=== PATIENT | male | born 1945 | race Caucasian/White ===

== ENCOUNTER 2020-05-05 15:55 | Inpatient (IN) | payer OTHER, MEDICARE ==
[~2020-05-05] VITALS: Ht 170.2 cm; Wt 60.8 kg
[2020-05-05 16:53] LABS: BASOPHILS ABSOLUTE AUTO 0.09 K/mm3 (0.00-0.23); BASOPHILS PERCENT AUTO 1 % (0-2); EOSINOPHILS ABSOLUTE AUTO 0.11 K/mm3 (0.00-0.68); EOSINOPHILS PERCENT AUTO 1 % (0-6); Hematocrit 29.3 % (37.0-53.0); Hemoglobin 9.4 g/dL (13.5-17.5); IMMATURE GRAN PERCENT AUTO 1 % (0-1); LYMPHOCYTES ABSOLUTE AUTO 1.03 K/mm3 (0.84-5.20); LYMPHOCYTES PERCENT AUTO 7 % (21-46); MONOCYTES ABSOLUTE AUTO 1.36 K/mm3 (0.16-1.47); MONOCYTES PERCENT AUTO 9 % (4-13); Mean Corpuscular HGB 26.9 pg (26.0-34.0); Mean Corpuscular HGB Conc 32.1 g/dL (31.5-36.5); Mean Corpuscular Volume 84 fL (80-100); Mean Platelet Volume 9.4 fL (9.1-12.4); NEUTROPHILS ABSOLUTE AUTO 13.01 K/mm3 (1.96-9.15); NEUTROPHILS PERCENT AUTO 83 % (41-73); Platelet Count 438 K/mm3 (150-400); RDW Coefficient Variation 12.7 % (11.7-14.2); RDW Standard Deviation 38.3 fL (35.1-46.3)
[2020-05-05 17:12] LABS: Albumin, Blood 2.7 g/dL (3.4-5.0); Albumin/Globulin Ratio 0.7 (0.8-1.8); Bilirubin, Total 0.6 mg/dL (0.1-1.0); Calcium, Blood 8.8 mg/dL (8.5-10.1); Creatinine, Blood 2.75 mg/dL (0.60-1.20); Globulin, Blood 3.7 g/dL (2.2-4.0); Potassium, Blood 5.6 mmol/L (3.5-5.5); Total Protein, Blood 6.4 g/dL (6.4-8.2); Troponin I 0.033 ng/mL (0.000-0.040)
[2020-05-05] MEDS ORDERED: CLON.3 PO (18:58)
[2020-05-05] MEDS ORDERED: AMLO10 PO (18:58)
[2020-05-05] MEDS ORDERED: HYDRA50 PO (18:59)
[2020-05-05] MEDS ORDERED: JARDIANCE25 MG PO (18:59)
[2020-05-05] MEDS ORDERED: INSULANPEN SC (18:59)
[2020-05-05] MEDS ORDERED: ASPI325EC PO (19:00)
[2020-05-05] MEDS ORDERED: ZESTRIL40 M1 PO (19:00)
[2020-05-05] MEDS ORDERED: LATA.005SO BOTHEYES (19:00)
[2020-05-05 20:28] LABS: Adenovirus Not Detected (NOT DETECT); Bordetella pertussis Not Detected (NOT DETECT); Chlamydophila pneumoniae Not Detected (NOT DETECT); Coronavirus 229E Not Detected (NOT DETECT); Coronavirus HKU1 Not Detected (NOT DETECT); Coronavirus NL63 Not Detected (NOT DETECT); Coronavirus OC43 Not Detected (NOT DETECT); Human Metapneumovirus Not Detected (NOT DETECT); Human Rhinovirus/Enterovirus Not Detected (NOT DETECT); Influenza A/2009-H1 Not Detected (NOT DETECT); Influenza A/H1 Not Detected (NOT DETECT); Influenza A/H3 Not Detected (NOT DETECT); Influenza B Not Detected (NOT DETECT); Mycoplasma pneumoniae Not Detected (NOT DETECT); Parainfluenza Virus 1 Not Detected (NOT DETECT); Parainfluenza Virus 2 Not Detected (NOT DETECT); Parainfluenza Virus 3 Not Detected (NOT DETECT); Parainfluenza Virus 4 Not Detected (NOT DETECT); Respiratory Syncytial Virus Not Detected (NOT DETECT); SARS-Cov-2 (COVID-19), BioFire Not Detected (NOT DETECT)
[2020-05-05 23:23] LABS: PCO2 Arterial 30.9 mmHg (35-45); PO2 Arterial 107 mmHg (80-100); pH Blood Arterial 7.37 (7.35-7.45)
--- NOTE | 2020-05-05 23:59 | NUR ---
ASSUMED CARE OF PATIENT AT APPROXIMATELY 2225 FROM ED FRANCOIS JOSEPH; REPORT FROM ED RN CATERINA Carl PATIENT ARRIVED TO UNIT VIA STRETCHER; TRANSFER VIA MAX ASSIST SLID FROM ED TO PCU STRETCHER. PATIENT ALERT AND ORIENTED X4; HARD OF HEARING AND SOFT SPOKEN; DIFFICULT TO UNDERSTAND DUE TO BIPAP MASK AT TIMES. ADMISSION COMPLETE. PATIENT HAD WASHCLOTH IN UNDERWEAR SATURATED IN URINE. PATIENT DENIES PAIN, DIZZINESS OR NAUSEA. NSR ON TELE; OXYGEN SATURATION ABOVE 90% ON BIPAP 40% FIO2. PIVX2 S/L. 2310; CHAY POTTER CALLED TO REPORT D-DIMER OF 8.51 AND TROPONIN TRENDING UP LASIX ORDERED AND FLUIDS HELD FOR NOW 2345; CHAY POTTER CALLED TO REPORT BLADDER SCAN OVER 900; ORDERS FOR URINARY CATHETER PATIENT CURRENTLY RESTING IN BED; CALL LIGHT IN REACH; BED IN LOWEST POSISTION; BED ALARM ON; WILL CONTINUE TO MONITOR AND ASSESS UNTIL END OF SHIFT.
[2020-05-06 03:44] LABS: BASOPHILS ABSOLUTE AUTO 0.07 K/mm3 (0.00-0.23); BASOPHILS PERCENT AUTO 1 % (0-2); EOSINOPHILS ABSOLUTE AUTO 0.06 K/mm3 (0.00-0.68); EOSINOPHILS PERCENT AUTO 0 % (0-6); Hematocrit 25.7 % (37.0-53.0); Hemoglobin 8.3 g/dL (13.5-17.5); IMMATURE GRAN PERCENT AUTO 1 % (0-1); LYMPHOCYTES ABSOLUTE AUTO 1.19 K/mm3 (0.84-5.20); LYMPHOCYTES PERCENT AUTO 8 % (21-46); MONOCYTES ABSOLUTE AUTO 1.18 K/mm3 (0.16-1.47); MONOCYTES PERCENT AUTO 8 % (4-13); Mean Corpuscular HGB Conc 32.3 g/dL (31.5-36.5); Mean Corpuscular Volume 84 fL (80-100); Mean Platelet Volume 9.3 fL (9.1-12.4); NEUTROPHILS ABSOLUTE AUTO 11.68 K/mm3 (1.96-9.15); NEUTROPHILS PERCENT AUTO 82 % (41-73); Platelet Count 371 K/mm3 (150-400); RDW Standard Deviation 39.5 fL (35.1-46.3); Red Blood Cell Count 3.07 M/mm3 (4.30-5.90); White Blood Cell Count 14.28 K/mm3 (4.00-11.30)
[2020-05-06 04:07] LABS: Bun/Creatinine Ratio 37.5 (12.0-20.0); Calcium, Blood 8.6 mg/dL (8.5-10.1); Creatinine, Blood 2.72 mg/dL (0.60-1.20); Potassium, Blood 5.5 mmol/L (3.5-5.5); Troponin I 0.038 ng/mL (0.000-0.040)
[2020-05-06 04:29] LABS: Source, Urine Catheter
[2020-05-06 04:44] LABS: Bilirubin, Urine Neg (Neg); Blood, Urine 5+ (Neg); Glucose Qualitative, Urine 3+ (Neg); Ketones, Urine 1+ (Neg); Leukocyte Esterase, Urine 2+ (Neg); Nitrite, Urine Neg (Neg); Protein, Urine 4+ (Neg); Specific Gravity, Urine 1.015 (1.003-1.022); Urobilinogen, Urine NORM (Normal)
[2020-05-06 04:46] LABS: Appearance, Urine Cloudy (Clear); Color, Urine Red (P-Yellow)
[2020-05-06 05:18] LABS: Red Blood Cells, Urine TNTC /hpf (0-2)
[2020-05-06 05:19] LABS: Squamous Epithelial Cells Rare /hpf (Few)
[2020-05-06 05:20] LABS: Bacteria Mod /hpf
--- NOTE | 2020-05-06 06:27 | NUR ---
PATIENT SLEPT ABOUT SIX HOURS LAST NIGHT. ATIVAN WORE OFF PATIENT BECAME MORE IRRITABLE WITH STAFF. PATIENT WOULDN'T STAY STILL FOR BLOOD PRESSURE; ELEVATED BP READINGS. PATIENT HAD OVER 1L OF URINE THAT HAS BLOOD NOTED IN IT NOW. ON AND OFF CPAP ALL SHIFT. WILL CONTINUE TO MONITOR AND ASSESS UNTIL END OF SHIFT.
--- NOTE | 2020-05-06 11:22 | NUR ---
ASSUMED CARE OF PT. PT ARRIVED BACK TO ROOM FROM VQ SCAN. NC FOUND IN PT'S MOUTH, PER HIS REQUEST, WITH 3.5L OF O2. PT C/O DYSPNEA, SPO2 IS >92% ON O2. PT APPEARS ANXIOUS AND WAS COMPLAINING ABOUT THE BP CUFF BEING TO TIGHT. INFORMED PT THAT HIS BP IS ELEVEATED, ADDING TO THE TIGHT BP. POLANCO DRAINING TO GRAVITY WITH DARK REDDISH URINE. WOUND VAC AND DRESSING IN PLACE TO RLE IS C/D/I. PROVIDED CARE UPDATE WITH PT, CALL LIGHT WITHIN REACH.
--- NOTE | 2020-05-06 18:15 | NUR ---
SHIFT SUMMARY PT IS ALERT AND ORIENTED, FORGETFUL AND ANXIOUS AT TIMES. WAS ABLE TO TITRATE O2 DOWN TO 2L OR 2L BLEED IN TO CPAP. PT SWITCHED BACK AND FORTH BETWEEN NC AND CPAP TODAY, BASED ON HIS COMFORT OF BREATHING. POLANCO REMAINS IN PLACE DRAINING TO GRAVITY, WITH DARK RED URINE, NO CLOTS. OUTPT WOUND VAC AND DRESSING REMAINS IN PLACE AND IS C/D/I. PT HAS BEEN HYPERTENSIVE TODAY AND IS IMPROVING THIS EVENING. TEMP MAX TODAY WAS 100.0. TELEMETERY HAS SHOWN PT TO BE SINUS RHYTHM/TACH WITH RATES 90'S-110'S.
--- NOTE | 2020-05-06 21:01 | NUR ---
ASSUMED CARE OF PATIENT AT APPROXIMATELY 1910 FROM KAIA David RN. PATIENT ALERT AND ORIENTED X4; HARD OF HEARING AND SOFT SPOKEN. PATIENT CALLS OUT INTO HALLWAY, IRRITABLE WITH CARE AT TIMES, FRANCHISE FIELD CONSULTANT LIGHT FREQUENTLY. ADMISSION COMPLETE. PATIENT DENIES PAIN, DIZZINESS OR NAUSEA. NSR ON TELE; OXYGEN SATURATION ABOVE 90% ON BIPAP OR 2-3.5LPM VIA NC. PIVX2 S/L. URINARY CATHETER PATENT AND DRAINING. PATIENT CURRENTLY RESTING IN BED; CALL LIGHT IN REACH; BED IN LOWEST POSISTION; BED ALARM ON; WILL CONTINUE TO MONITOR AND ASSESS UNTIL END OF SHIFT.
[2020-05-07 03:34] LABS: BASOPHILS ABSOLUTE AUTO 0.07 K/mm3 (0.00-0.23); BASOPHILS PERCENT AUTO 0 % (0-2); EOSINOPHILS ABSOLUTE AUTO 0.18 K/mm3 (0.00-0.68); EOSINOPHILS PERCENT AUTO 1 % (0-6); Hematocrit 25.6 % (37.0-53.0); Hemoglobin 8.3 g/dL (13.5-17.5); IMMATURE GRAN PERCENT AUTO 1 % (0-1); LYMPHOCYTES ABSOLUTE AUTO 1.24 K/mm3 (0.84-5.20); LYMPHOCYTES PERCENT AUTO 7 % (21-46); MONOCYTES ABSOLUTE AUTO 1.86 K/mm3 (0.16-1.47); MONOCYTES PERCENT AUTO 10 % (4-13); Mean Corpuscular HGB Conc 32.4 g/dL (31.5-36.5); Mean Corpuscular Volume 83 fL (80-100); Mean Platelet Volume 9.3 fL (9.1-12.4); NEUTROPHILS ABSOLUTE AUTO 14.78 K/mm3 (1.96-9.15); NEUTROPHILS PERCENT AUTO 81 % (41-73); Platelet Count 357 K/mm3 (150-400); RDW Standard Deviation 39.2 fL (35.1-46.3); Red Blood Cell Count 3.07 M/mm3 (4.30-5.90); White Blood Cell Count 18.23 K/mm3 (4.00-11.30)
[2020-05-07 03:57] LABS: Albumin, Blood 2.3 g/dL (3.4-5.0); Albumin/Globulin Ratio 0.6 (0.8-1.8); Bilirubin, Total 0.5 mg/dL (0.1-1.0); Bun/Creatinine Ratio 36.2 (12.0-20.0); Calcium, Blood 8.6 mg/dL (8.5-10.1); Creatinine, Blood 3.2 mg/dL (0.60-1.20); Globulin, Blood 3.6 g/dL (2.2-4.0); Potassium, Blood 5.6 mmol/L (3.5-5.5); Total Protein, Blood 5.9 g/dL (6.4-8.2)
--- NOTE | 2020-05-07 06:29 | NUR ---
PATIENT SLEPT ABOUT FIVE HOURS LAST NIGHT. URINE DARK RED/BROWN; SEDIMENT NOTED. PATIENT IRRITABLE WITH CARE. CALLS FREQUENTLY.
--- NOTE | 2020-05-07 18:30 | NUR ---
SHIFT SUMMARY PT IS ALERT AND ORIENTEDx4, LESS IRRITABLE TODAY. PT REPORTED THAT CHEWING FOOD TIRES HIM, MAKES HIM ANXIOUS AND INCREASES HIS WORK OF BREATHING. DISCUSSED DIETARY OPTIONS WITH PT AND ENCOURAGED PT TO EAT SMALL AMOUNTS OVER LONGER PERIODS OF TIME AND ADJUSTED PT'S DIET TO MECH SOFT. PT'S HYPERTENSION WAS IMPROVING TODAY AFTER MEDICATION ADJUSTMENTS. DR FISCHER WAS CONSULTED AND IS CURRENTLY NOT GOING TO DO SHAKILA. DR ALVARENGA ALSO CONSULTED AND ORDERS RECEIVED AND IMPLEMENTED. POLANCO IN PLACE DRAINING JENNY URINE AND OUTPUT WAS SMALL. TELEMETERY HAS SHOWN PT TO BE IN SINUS RHYTHM/TACH WITH RATES 90'S-100'S. PT HAS BEEN ON 2-3.5L OF O2 VIA NC TODAY AND REQUESTED LESS USE OF CPAP TODAY. OTHER VITALS HAVE BEEN STABLE.
[2020-05-08 03:48] LABS: BASOPHILS ABSOLUTE AUTO 0.05 K/mm3 (0.00-0.23); BASOPHILS PERCENT AUTO 0 % (0-2); EOSINOPHILS ABSOLUTE AUTO 0.38 K/mm3 (0.00-0.68); EOSINOPHILS PERCENT AUTO 2 % (0-6); Hematocrit 25.5 % (37.0-53.0); Hemoglobin 8.2 g/dL (13.5-17.5); IMMATURE GRAN ABSOLUTE AUTO 0.09 K/mm3 (0.00-0.10); IMMATURE GRAN PERCENT AUTO 1 % (0-1); LYMPHOCYTES ABSOLUTE AUTO 1.12 K/mm3 (0.84-5.20); LYMPHOCYTES PERCENT AUTO 7 % (21-46); MONOCYTES ABSOLUTE AUTO 1.56 K/mm3 (0.16-1.47); MONOCYTES PERCENT AUTO 9 % (4-13); Mean Corpuscular HGB 26.8 pg (26.0-34.0); Mean Corpuscular HGB Conc 32.2 g/dL (31.5-36.5); Mean Corpuscular Volume 83 fL (80-100); Mean Platelet Volume 9.2 fL (9.1-12.4); NEUTROPHILS ABSOLUTE AUTO 14.01 K/mm3 (1.96-9.15); NEUTROPHILS PERCENT AUTO 81 % (41-73); Platelet Count 363 K/mm3 (150-400); RDW Coefficient Variation 12.8 % (11.7-14.2); RDW Standard Deviation 38.9 fL (35.1-46.3); Red Blood Cell Count 3.06 M/mm3 (4.30-5.90); White Blood Cell Count 17.21 K/mm3 (4.00-11.30)
[2020-05-08 04:12] LABS: Alanine Aminotransfer (ALT/SGP 7 U/L (12-78); Albumin, Blood 2.1 g/dL (3.4-5.0); Albumin/Globulin Ratio 0.7 (0.8-1.8); Alk Phos 63 U/L (50-136); Anion Gap 9 mmol/L (6-16); Aspartate Aminotrans (AST/SGOT 17 U/L (12-37); Bilirubin, Total 0.3 mg/dL (0.1-1.0); Blood Urea Nitrogen 127 mg/dL (8-24); Bun/Creatinine Ratio 39.7 (12.0-20.0); CO2, Blood 21 mmol/L (21-32); Calcium, Blood 8.4 mg/dL (8.5-10.1); Chloride, Blood 108 mmol/L (98-108); Globulin, Blood 3.2 g/dL (2.2-4.0); Glomerular Filtration Rate 20 (60-); Glucose, Blood 151 mg/dL (70-99); Magnesium, Blood 2.9 mg/dL (1.6-2.4); Phosphorus, Blood 6.4 mg/dL (2.5-4.9); Potassium, Blood 5.3 mmol/L (3.5-5.5); Sodium, Blood 138 mmol/L (136-145); Total Protein, Blood 5.3 g/dL (6.4-8.2); Vancomycin, Random 17.6 ug/mL
--- NOTE | 2020-05-08 06:44 | NUR ---
SHIFT SUMMARY NO ACUTE CHANGE THIS SHIFT. PT A&OX4. COOPERATIVE. IRRITABLE BUT REDIRECTABLE. SP02>90% ON 3L NC. TELEMETRY READS SR, HR 50'S. BP HAS BEEN ELEVATED THIS SHIFT, BP MEDICATIONS GIVEN PER EMAR. MIDNIGHT BP TAKEN AND DID NOT GET A READING. PT REFUSED TO RETAKE BUT ALLOWED AT 0400 AM VITALS. OFFERED TO REPOSITION PT MULTIPLE TIMES, PT REFUSED. DR ALVARENGA IN TO SEE PT AT BEGINNING OF SHIFT. BICARB INFUSING PER EMAR. POLANCO DRAINING TO GRAVITY. WILL CONTINUE TO MONITOR.
--- NOTE | 2020-05-08 11:02 | NUR ---
said pt stated that wound care changed his wv but she was willing for staff to care for it if within training and experience, will assess and treat
--- NOTE | 2020-05-08 12:49 | NUR ---
emisis, pt had stated he did not want lunch, staff wrote it on menu but one was delivered, when staff brought it in pt became agitated, would not allow staff to clean him up, declined drew, took prescribed medication with minimal compaint, currently resting no emisis, will continue to monitor and treat
--- NOTE | 2020-05-08 19:21 | NUR ---
a+o, wants wound vac to stay, discussed with noc nurse who will pass on to day shift, if [facility] not available from [facility] then he has agreed to go with our model, call light in reach, iv infusing with no s/sx of infection or infiltration, bed in low position, no signs of acute changes noted, bsr shared with pt and staff
[2020-05-09 04:13] LABS: BASOPHILS ABSOLUTE AUTO 0.07 K/mm3 (0.00-0.23); BASOPHILS PERCENT AUTO 1 % (0-2); EOSINOPHILS ABSOLUTE AUTO 0.31 K/mm3 (0.00-0.68); EOSINOPHILS PERCENT AUTO 2 % (0-6); Hematocrit 22.7 % (37.0-53.0); Hemoglobin 7.5 g/dL (13.5-17.5); IMMATURE GRAN ABSOLUTE AUTO 0.08 K/mm3 (0.00-0.10); IMMATURE GRAN PERCENT AUTO 1 % (0-1); LYMPHOCYTES ABSOLUTE AUTO 1.49 K/mm3 (0.84-5.20); LYMPHOCYTES PERCENT AUTO 11 % (21-46); MONOCYTES ABSOLUTE AUTO 1.38 K/mm3 (0.16-1.47); MONOCYTES PERCENT AUTO 10 % (4-13); Mean Corpuscular HGB 27.4 pg (26.0-34.0); Mean Corpuscular Volume 83 fL (80-100); Mean Platelet Volume 9.4 fL (9.1-12.4); NEUTROPHILS PERCENT AUTO 77 % (41-73); Platelet Count 319 K/mm3 (150-400); RDW Coefficient Variation 12.7 % (11.7-14.2); RDW Standard Deviation 38.5 fL (35.1-46.3); Red Blood Cell Count 2.74 M/mm3 (4.30-5.90); White Blood Cell Count 14.23 K/mm3 (4.00-11.30)
[2020-05-09 04:37] LABS: Albumin, Blood 1.7 g/dL (3.4-5.0); Anion Gap 9 mmol/L (6-16); Blood Urea Nitrogen 139 mg/dL (8-24); Bun/Creatinine Ratio 39.4 (12.0-20.0); CO2, Blood 22 mmol/L (21-32); Chloride, Blood 106 mmol/L (98-108); Creatinine, Blood 3.53 mg/dL (0.60-1.20); Glomerular Filtration Rate 18 (60-); Glucose, Blood 159 mg/dL (70-99); Magnesium, Blood 2.7 mg/dL (1.6-2.4); Phosphorus, Blood 7.9 mg/dL (2.5-4.9); Potassium, Blood 5.6 mmol/L (3.5-5.5); Sodium, Blood 137 mmol/L (136-145); Vancomycin, Random 22.3 ug/mL
--- NOTE | 2020-05-09 06:27 | NUR ---
SHIFT SUMMARY PT SLEPT T/O SHIFT. PT ALERT AND ORIENTED X 4. AGITATED AT TIMES. REFUSED CPAP T/O SHIFT. OXYGEN SATURATION MAINTAINED ABOVE 92% ON 2-3 L OF OXYGEN VIA NC. REFUSED WOUND VAC CHANGE. CHAMFERING MACHINE OPERATOR NOTIFIED. REFUSED Q 2 TURNS, ABLE TO SHIFT SELF IN BED NEEDED. HR STABLE, BRADYCARDIC AT TIMES. BETA BLOCKERS HELD. BP STABLE. REPORTS NO CP OR PRESSURE. PHYSICIAN NOTIFIED OF LOW URINE OUTPUT AND AM LABS. ORDERS PROVIDED AND GIVEN PER EMAR. BUE SWOLLEN T/O SHIFT, CURRENLTY ELEVATED ON PILLOWS. WILL CONTINUE TO MONITOR UNTIL REPORT GIVEN TO DAYSHIFT RN.
--- NOTE | 2020-05-09 10:37 | NUR ---
ASSUMED CARE FROM NOC RN. PT WAS SLEEPING AT SHIFT CHANGE. PT IS ALERT AND ORIENTED BUT TENDS TO CHANGE TOPIC OF CONVERSATION FREQUENTLY. PT IS REFUSING TO HAVE THE WOUND VAC AND DRESSING CHANGED ON THE RIGHT FOOT; DRESSING IS CURRENTLY C/D/I BUT WAS DUE FOR A CHANGE YESTERDAY 05/08/20. PT STATES "I DON'T LIKE OUR WOUND CARE SUPPLIES AND WANTS US TO USE WHAT THE [facility]" I'VE EXPLAINED THAT WE HAVE OUR SUPPLIES HERE AND ARE NOT ABLE TO GET THE SUPPLIES FROM THE [facility] BUT I AM HAPPY TO DO THE DRESSING WITH OUR EQUIPMENT; PT CONTINUES TO REFUSE. PT HAS BICARB AND ANITBIOTICS RUNNING THROUGH THE IV. PT DENIES CHEST PAIN OR PRESSURE, AND DENIES PAIN ELSEWHERE THROUGHOUT THE BODY. PT CAN BE IRRITABLE AT TIMES WHEN HE FEELS WE ARE NOT LISTENING AND NEEDS REASSURANCE THAT STAFF IS HERE TO HELP. VS STABLE, BG STABLE, PT RESTING AT THIS TIME AND AWAITING A ROOM ON MEDICAL UNIT WITH TELE HIS STATUS HAS CHANGED.
--- NOTE | 2020-05-09 13:11 | NUR ---
ATTEMPTED TO PULL URINE FOR THE UA FROM THE POLANCO CATHETER. THE CATH WAS CLAMPED AND ONLY 6ML WAS PULLED OUT VIA SYRINGE. WILL ATTEMPT AGAIN LATER
--- NOTE | 2020-05-09 18:31 | NUR ---
TRANSFER TO MEDICAL UNIT GAVE REPORT TO RNLINH. PT WAS AGREEABLE TO TRANSFER. PT LEFT THE UNIT WITH VS STABLE, NSR HR IN 60S. PT WAS ON 1L O2, WOUND VAC AND WOUND ON THE RIGHT FOOT HAD BEEN REDRESSED PRIOR TO TRANSFER. PT LEFT THE UNIT WITH HIS PERSONAL BELONGINGS, HIS CANE, TWO PHONES, AND INSULIN PENS. PT WAS ON BICARB DRIP DURING TRANSFER AND LEFT THE FLOOR BY CART WITH TWO ROCK CRUSHER OPERATOR'S.
[2020-05-10 05:46] LABS: Hematocrit 23.8 % (37.0-53.0)
--- NOTE | 2020-05-10 05:49 | NUR ---
SHIFT SUMMARY ADMITTED FOR SEPSIS DUE TO PNEUMONIA. FULL CODE. 24 URINE COLLECTION IN PROGRESS. POLANCO CATHETER IN PLACE. TELEMETRY: ONELIA @ 47-60 BPM. REFUSED CPAP LAST NIGHT, DID NOT SLEEP THIS SHIFT. CALLS FREQUENTLY FOR SMALL NEEDS. WOUND VAC IN PLACE ON RT TOES. NS W/SODIUM BICARB INFUSING @ 50 ML/HR. PT DID SIT UP IN CHAIR THIS SHIFT. EAMON ALVARENGA AND ALTON ARE CONSULTS. VERY LITTLE UO THIS SHIFT. FREQUENTLY REQUESTS OXYGEN TO BE INCREASED ALTHOUGH 02 SAT IS > 97%
[2020-05-10 06:01] LABS: Albumin, Blood 2.1 g/dL (3.4-5.0); Anion Gap 9 mmol/L (6-16); Blood Urea Nitrogen 146 mg/dL (8-24); Bun/Creatinine Ratio 37.3 (12.0-20.0); CO2, Blood 21 mmol/L (21-32); Chloride, Blood 104 mmol/L (98-108); Creatinine, Blood 3.91 mg/dL (0.60-1.20); Glomerular Filtration Rate 16 (60-); Glucose, Blood 113 mg/dL (70-99); Magnesium, Blood 2.8 mg/dL (1.6-2.4); Phosphorus, Blood 7.5 mg/dL (2.5-4.9); Potassium, Blood 5.4 mmol/L (3.5-5.5); Sodium, Blood 134 mmol/L (136-145)
--- NOTE | 2020-05-10 14:11 | NUR ---
D/C INSTRUCT REVIEWED w PT'S. NEW [place] TO [place]/REQUEST. ARRIVED. BOOK AGENT PROVIDE W/C ESCORT FROM HOSP. PT IS PLEASANT/APPRECIATIVE. STATE SATISFACTION.
--- NOTE | 2020-05-10 18:24 | NUR ---
SUMMARY PT IS A/O X4, PLEASANT AFFECT. STATE HE IS ABLE TO GET UP w ASSIST TO CHAIR HOWEVER HAS DECLINED OOB T/O DAY UNLESS WE HAVE A W/C THAT HE CAN WHEEL IND. ANABEL SAW HIM THIS AFTERNOON, DID EXERCISES IN BED. DX PNEUM, LS DIMINISHED w CRACKLES, BIOX 95% 2L, HE HAS BEEN AFEBRILE, IV ANTIBX CONTINUE. WOUND VAC TO R FOOT TOE AMPUTATION SITE PATENT, DRSG INTACT. ARF, GFR 16, DR ALVARENGA CONSULTED, ORDER 4MG IV BUMEX THIS AM. PT HAS HAD 500ML OUTPUT SO FAR VIA POLANCO CATH, URINE ON ICE FOR 24HR COLLECTION. BUE, TORSO, GENITALS SWOLLEN, EDEMATOUS. TELE NSR/MX.
[2020-05-10 23:10] LABS: Protein, Urine Quantitative 164.7 mg/dL (0.0-11.9)
[2020-05-11 04:43] LABS: Hematocrit 24.8 % (37.0-53.0); Hemoglobin 8.1 g/dL (13.5-17.5)
--- NOTE | 2020-05-11 05:11 | NUR ---
SHIFT SUMMARY ADMITTED FOR PNEUMONIA/SEPSIS. FULL CODE. BUE AND TORSO, GENITAL REGION ARE MORE EDEMATOUS THAN ON PREVIOUS SHIFTS. PT BECAME NAUSEOUS X1 THIS SHIFT, MEDICATED PER EMAR. 24 HR URINE PROTEIN IS COLLECTED AND SUBMITTED FOR ANALYSIS. TELEMETRY: NSR @ [address] ON RT TOES FOLLOWING AMPUTATION AT [employer]. POLANCO IN PLACE IS PATENT.
[2020-05-11 05:36] LABS: Albumin, Blood 2.1 g/dL (3.4-5.0); Anion Gap 10 mmol/L (6-16); Blood Urea Nitrogen 153 mg/dL (8-24); Bun/Creatinine Ratio 38.2 (12.0-20.0); CO2, Blood 22 mmol/L (21-32); Calcium, Blood 8.1 mg/dL (8.5-10.1); Chloride, Blood 102 mmol/L (98-108); Glomerular Filtration Rate 16 (60-); Glucose, Blood 135 mg/dL (70-99); Phosphorus, Blood 8.2 mg/dL (2.5-4.9); Potassium, Blood 5.5 mmol/L (3.5-5.5); Sodium, Blood 134 mmol/L (136-145)
--- NOTE | 2020-05-11 08:42 | NUR ---
DR ALVARENGA IN TO SEE PT, REVIEW LABS & NEED FOR DIALYSIS, EXPLAIN PROCESS & NEED FOR PERMA CATH PLACEMENT. PT AGREES TO PROCEDURES. DR ALVARENGA CONTACT DR NEVAREZ VIA PHONE FOR DIALYSIS CATH PLACEMENT.
[2020-05-11 10:09] LABS: B. HENSELAE IGG Negative titer (Neg:<1:320); B. HENSELAE IGM Negative titer (Neg:<1:100); B. QUINTANA IGG Negative titer (Neg:<1:320); B. QUINTANA IGM Negative titer (Neg:<1:100)
[2020-05-11 12:09] LABS: Q FEVER PHASE I Negative (Neg:<1:16); Q FEVER PHASE II Negative (Neg:<1:16)
--- NOTE | 2020-05-11 14:10 | NUR ---
PT REFUSING WOUND VAC CHANGE TODAY "IT WAS JUST CAHNGED ON FRIDAY. AND IF WE WAIT UNTIL TOMORROW IT WILL BE BACK ON THE RIGHT SCHEDULE"
--- NOTE | 2020-05-11 19:49 | NUR ---
SUMMARY PT IS A/O X4 HOWEVER CONTINUES WEAK/FATIGUED, T/O DAY. CONTINUING RENAL FAILURE, ANASARCA. HE AGREED TO DIALYSIS THIS w DR ALVARENGA. DR NEVAREZ PLACE PERMA CATH PORT RCW THIS AFTERNOON. PT HAS BEEN NAUSEOUS, IV ZOFRAN GIVEN, INEFFECTIVE, DR KOBY WHALEN ORDER REPEAT. HIS BP HAS BEEN ELEVATED, D/T NAUSEA UNABLE TO TOLERATE SCHEDULED ORAL BP MEDS, DR WHALEN ORDER IV HYDRALAZINE. DR ALVARENGA HAD NURS SUPVR NOTIFY FLAME ANNEALING MACHINE SETTER PERMACATH IN PLACE, PT WILL HAVE HD IN AM. DR ALVARENGA NOTIFIED URINE OUTPUT MINIMAL, ONLY 300ML THIS SHIFT, ORDER IV BUMEX 4MG. REPORT TO NOC RN.
--- NOTE | 2020-05-12 04:16 | NUR ---
LABS RN NOTIFIED THAT FILLING HAULER WAS UNABLE TO DRAW AM LABS AND PT REFUSING FURTHER ATTEMPTS AT THIS TIME. LAB DRAW WILL BE ATTEMPTED AGAIN AT A LATER TIME.
--- NOTE | 2020-05-12 04:59 | NUR ---
SHIFT SUMMARY PT HAS BEEN A/O OVERNIGHT. USING CALL LIGHT AND MAKING NEEDS KNOWN. NEW PERMACATH TO R UPPER CHEST IN PLACE. NO NEW DRAINAGE ON DRESSING OVERNIGHT. PT REFUSED ASSESSMENT OF WOUND VAC DRESSING THIS SHIFT. HE HAS ALSO REFUSED MEDICATIONS AT TIMES T/O THE SHIFT. EDUCATION PROVIDED, HOWEVER PT CONTINUES TO REFUSE MEDICATIONS. LAB DRAW ATTEMPTED THIS AM; FIRST ATTEMPT UNSUCCESSFUL, PT REFUSING FURTHER ATTEMPTS. CATHETER IN PLACE OVERNIGHT WITH LOW URINE OUTPUT. SUCTION AT BEDSIDE; PT USING PRN. HOB ELEVATED OVERNIGHT. USING 2L O2 NC WITH O2 SAT 97%. PLAN IS TO HAVE DIALYSIS TODAY. PT RESTING AT THIS TIME, CALL LIGHT IN REACH.
[2020-05-12 09:45] LABS: BASOPHILS ABSOLUTE AUTO 0.04 K/mm3 (0.00-0.23); BASOPHILS PERCENT AUTO 0 % (0-2); EOSINOPHILS ABSOLUTE AUTO 0.11 K/mm3 (0.00-0.68); EOSINOPHILS PERCENT AUTO 1 % (0-6); Hematocrit 25.1 % (37.0-53.0); Hemoglobin 8.2 g/dL (13.5-17.5); IMMATURE GRAN ABSOLUTE AUTO 0.14 K/mm3 (0.00-0.10); IMMATURE GRAN PERCENT AUTO 1 % (0-1); LYMPHOCYTES ABSOLUTE AUTO 1.13 K/mm3 (0.84-5.20); LYMPHOCYTES PERCENT AUTO 5 % (21-46); MONOCYTES ABSOLUTE AUTO 2.06 K/mm3 (0.16-1.47); MONOCYTES PERCENT AUTO 10 % (4-13); Mean Corpuscular HGB 26.9 pg (26.0-34.0); Mean Corpuscular HGB Conc 32.7 g/dL (31.5-36.5); Mean Corpuscular Volume 82 fL (80-100); Mean Platelet Volume 9.3 fL (9.1-12.4); NEUTROPHILS ABSOLUTE AUTO 17.35 K/mm3 (1.96-9.15); NEUTROPHILS PERCENT AUTO 83 % (41-73); Platelet Count 406 K/mm3 (150-400); RDW Coefficient Variation 13.2 % (11.7-14.2); RDW Standard Deviation 39.3 fL (35.1-46.3); Red Blood Cell Count 3.05 M/mm3 (4.30-5.90); White Blood Cell Count 20.83 K/mm3 (4.00-11.30)
[2020-05-12 10:26] LABS: Albumin, Blood 2.2 g/dL (3.4-5.0); Anion Gap 12 mmol/L (6-16); Blood Urea Nitrogen 174 mg/dL (8-24); Bun/Creatinine Ratio 37.3 (12.0-20.0); CO2, Blood 22 mmol/L (21-32); Calcium, Blood 8.5 mg/dL (8.5-10.1); Chloride, Blood 101 mmol/L (98-108); Creatinine, Blood 4.67 mg/dL (0.60-1.20); Glomerular Filtration Rate 13 (60-); Glucose, Blood 164 mg/dL (70-99); Phosphorus, Blood 8.4 mg/dL (2.5-4.9); Potassium, Blood 5.6 mmol/L (3.5-5.5); Sodium, Blood 135 mmol/L (136-145)
--- NOTE | 2020-05-12 13:38 | NUR ---
CALL FROM [facility] REPORTING SUSTAINED TACHYCARDIA 100-108, WITH BURSTS INTO 130'S (NON-SUSTAINED) AT 0947. CALLED HD NURSE, PATIENT WAS AT HD, AND THEY REPORTED THAT PATIENT WAS ASYMPTOMATIC. SCHEDULED METOPROLOL GIVEN. HEART RATE AT THIS TIME, 1340, IN THE 80'S.
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
[2020-05-13 09:39] LABS: BASOPHILS ABSOLUTE AUTO 0.02 K/mm3 (0.00-0.23); BASOPHILS PERCENT AUTO 0 % (0-2); EOSINOPHILS ABSOLUTE AUTO 0.67 K/mm3 (0.00-0.68); EOSINOPHILS PERCENT AUTO 4 % (0-6); Hematocrit 22.9 % (37.0-53.0); Hemoglobin 7.4 g/dL (13.5-17.5); IMMATURE GRAN PERCENT AUTO 1 % (0-1); LYMPHOCYTES ABSOLUTE AUTO 1.09 K/mm3 (0.84-5.20); LYMPHOCYTES PERCENT AUTO 6 % (21-46); MONOCYTES ABSOLUTE AUTO 1.74 K/mm3 (0.16-1.47); MONOCYTES PERCENT AUTO 9 % (4-13); Mean Corpuscular HGB 26.9 pg (26.0-34.0); Mean Corpuscular HGB Conc 32.3 g/dL (31.5-36.5); Mean Corpuscular Volume 83 fL (80-100); Mean Platelet Volume 8.8 fL (9.1-12.4); NEUTROPHILS PERCENT AUTO 81 % (41-73); Platelet Count 301 K/mm3 (150-400); RDW Coefficient Variation 13.3 % (11.7-14.2); RDW Standard Deviation 39.7 fL (35.1-46.3); Red Blood Cell Count 2.75 M/mm3 (4.30-5.90); White Blood Cell Count 18.82 K/mm3 (4.00-11.30)
[2020-05-13 09:55] LABS: Anion Gap 7 mmol/L (6-16); Blood Urea Nitrogen 108 mg/dL (8-24); Bun/Creatinine Ratio 33.1 (12.0-20.0); CO2, Blood 31 mmol/L (21-32); Chloride, Blood 101 mmol/L (98-108); Creatinine, Blood 3.26 mg/dL (0.60-1.20); Glomerular Filtration Rate 20 (60-); Glucose, Blood 140 mg/dL (70-99); Magnesium, Blood 2.7 mg/dL (1.6-2.4); Phosphorus, Blood 6.4 mg/dL (2.5-4.9); Potassium, Blood 4.5 mmol/L (3.5-5.5); Sodium, Blood 139 mmol/L (136-145)
--- NOTE | 2020-05-13 22:01 | NUR ---
1998 74 Y/O MALE RESTING COMFORTABLY IN BED HIGH FOWLERS WHILE WEARING O2 AT 2L/M PER NASAL CANNULA; DENIES PAIN OR NAUSEA; LEFT FOOT WOUND VAC AT 120MM/HCG; ALERT AND ORIENTED X 4.
--- NOTE | 2020-05-14 05:38 | NUR ---
SHIFT SUMMARY: 74 Y/O MALE SLEPT COMFORTABLY ALL SHIFT IN BED HIGH FOWLERS WHILE WEARING O2 AT 2L/M PER NASAL CANNULA WITH SATS AVERAGING 92%; PT REQUIRES ASSISTANCE WITH ALL ADLS/IADLS TO INCLUDE REPOSITIONING IN BED AND ASSISTANCE WITH DRINKS; PT VERY PICKY AT TIMES WHETHER HE WANTS ICE OR NO ICE IN HIS WATER; ALERT AND ORIENTED X 3, ABLE TO FOLLOW SIMPLE VERBAL COMMANDS; DENIES PAIN OR NAUSEA; POLANCO DRAINING CLEAR YELLOW FLUID; PTS RIGHT FOOT WOUND VAC AT 120MM/HG CONTINUOUS SUCTION WITH NO DRAINAGE NOTED IN CANISTER; TELEMETRY REFLECTS NSR PER DOMINICK--MANAGER BILINGUAL; BED ALARM APPLIED FOR SAFETY, BED LOW POSITION WITH CALL LIGHT AT SIDE.
[2020-05-14 06:07] LABS: HBSAG SCREEN Negative (Negative); HEP A AB, IGM Negative (Negative); HEP B CORE AB, IGM Negative (Negative); HEP C VIRUS AB <0.1 (0.0-0.9)
[2020-05-14 09:44] LABS: BASOPHILS ABSOLUTE AUTO 0.03 K/mm3 (0.00-0.23); BASOPHILS PERCENT AUTO 0 % (0-2); EOSINOPHILS ABSOLUTE AUTO 0.77 K/mm3 (0.00-0.68); EOSINOPHILS PERCENT AUTO 4 % (0-6); Hematocrit 18.2 % (37.0-53.0); IMMATURE GRAN PERCENT AUTO 1 % (0-1); LYMPHOCYTES ABSOLUTE AUTO 0.96 K/mm3 (0.84-5.20); LYMPHOCYTES PERCENT AUTO 5 % (21-46); MONOCYTES ABSOLUTE AUTO 1.69 K/mm3 (0.16-1.47); MONOCYTES PERCENT AUTO 9 % (4-13); Mean Corpuscular HGB Conc 31.3 g/dL (31.5-36.5); Mean Corpuscular Volume 86 fL (80-100); Mean Platelet Volume 9.2 fL (9.1-12.4); NEUTROPHILS PERCENT AUTO 81 % (41-73); Platelet Count 254 K/mm3 (150-400); RDW Coefficient Variation 13.4 % (11.7-14.2); RDW Standard Deviation 41.2 fL (35.1-46.3); Red Blood Cell Count 2.11 M/mm3 (4.30-5.90); White Blood Cell Count 18.65 K/mm3 (4.00-11.30)
[2020-05-14 09:50] LABS: Hemoglobin 5.7 g/dL (13.5-17.5)
[2020-05-14 09:55] LABS: Albumin, Blood 1.8 g/dL (3.4-5.0); Anion Gap 5 mmol/L (6-16); Blood Urea Nitrogen 84 mg/dL (8-24); Bun/Creatinine Ratio 25.7 (12.0-20.0); CO2, Blood 33 mmol/L (21-32); Calcium, Blood 7.7 mg/dL (8.5-10.1); Chloride, Blood 101 mmol/L (98-108); Creatinine, Blood 3.27 mg/dL (0.60-1.20); Glomerular Filtration Rate 20 (60-); Glucose, Blood 173 mg/dL (70-99); Phosphorus, Blood 4.9 mg/dL (2.5-4.9); Potassium, Blood 4.6 mmol/L (3.5-5.5); Sodium, Blood 139 mmol/L (136-145)
--- NOTE | 2020-05-14 10:49 | NUR ---
RAPID RESPONSE CALLED WHILE PATIENT WAS IN DIALYSIS. THIS RN RESPONDED, HOPITALIST AND SURVEY WORKER ALSO PRESENT. PATIENT WITH EYES OPEN AND RESPONSIVE, BUT SLOW TO RESPOND ON ARRIVAL. MADE MD AWARE THAT HGB DROPPED TO 5.7, WITH REPEAT DRAW OF 6, AND THAT HEART RATE DROPPED INTO 40'S RECENTLY PER TRIMMER AND BORER MACHINE OPERATOR. PT TO RECIEVE TWO UNITS OF PRBC'S DURING HD. BP STABLE. REMAINS AT HD AT THIS TIME.
[2020-05-14 11:00] LABS: Bicarbonate Venous 35.5 mmol/L (24.0-30.0); PO2 Venous 43.8 mmHg (38-42); pH Blood Venous 7.47 (7.34-7.37)
--- NOTE | 2020-05-14 11:06 | NUR ---
DIALYSIS HAVING DIFFICULTY GETTING THE BP ON THE PT, WHEN WE NOTICED HE WAS BECOMING UNRESPONSIVE. Shweta RUIZ RN BEGAN GIVING THE PT A STERNUM RUB WITHOUT RESULTS. EYES FIXED. BOLUS NS STARTED. RAPID RESPONSE CALLED. 300 ML OF NS GIVEN. PT BEGAN TO RESPOND. SLUGGISH AND VERY SLEEPY. 2 UNITS PRBCS ORDERED
[2020-05-14 11:18] LABS: Percent Saturation 22.2 % (20.0-50.0)
--- NOTE | 2020-05-14 13:46 | NUR ---
ECHOCARDIOGRAM IN PROCESS. HOSPITALIST NOTIFED OF DBP IN THE 40'S. PATIENT ASYMPTOMATIC.
[2020-05-14 15:48] LABS: Hematocrit 27.4 % (37.0-53.0); Hemoglobin 9.1 g/dL (13.5-17.5)
--- NOTE | 2020-05-14 18:19 | NUR ---
NOTICIED RIGHT FLANK BRUISE DEVELOPING. OUTLINED AREA AND NOTIFIED MD. NEW ORDERS PLACE AND IN MOTION. PATIENT WENT FOR CT/ABD PELVIS AND REPEAT HGB AT 2100. NIGHT RN TO NOTIFY NIGHT MD IF HGB DROPS SO HEPARIN CAN BE HELD.
--- NOTE | 2020-05-15 00:15 | NUR ---
Social work referral made for homeless disabled [place] . He says he stays with friends of lives in car. He was admitted 05/05/2020 with sepsis due to pneumonia. He also had rt chest wall permcath placed & has been recieving daily dialysis. Heparin injection held earlier due to critically low H & H earlier in day & need to transfuse 2 units PRBC with dialysis & lower hemoglobin 8.1 down from 9.1 earlier. He had black tarry stool x 1 incontinence & he requires 2 assist for toileting & bed mobility. He frequently refuses repositioning & declines Q 2hour turns. PT has wound vac patent to rt le with no drainage. Irritable at times, " Just leave me alone". Had maya cath DC on day shift no void for UA yest. Had dialysis inpt yesterday & daily since Perm cath placed. Continues on IV antibiotics.
--- NOTE | 2020-05-15 04:47 | NUR ---
PT refused vital & RX. Incontient of bowel x 2 dark tarry. Poor appetite, medicated x 2 for nausea with zofran. Refused apresoline, refused vital signs ^ when reapproached continued to refuse. HBG down at HS to 8. Refused am lab draw.
[2020-05-15 06:23] LABS: Hematocrit 18.7 % (37.0-53.0); Hemoglobin 6.3 g/dL (13.5-17.5)
[2020-05-15 06:34] LABS: Albumin, Blood 1.7 g/dL (3.4-5.0); Anion Gap 8 mmol/L (6-16); Blood Urea Nitrogen 100 mg/dL (8-24); Bun/Creatinine Ratio 39.1 (12.0-20.0); CO2, Blood 31 mmol/L (21-32); Calcium, Blood 7.7 mg/dL (8.5-10.1); Chloride, Blood 100 mmol/L (98-108); Creatinine, Blood 2.56 mg/dL (0.60-1.20); Glomerular Filtration Rate 26 (60-); Glucose, Blood 283 mg/dL (70-99); Magnesium, Blood 2.2 mg/dL (1.6-2.4); Phosphorus, Blood 3.7 mg/dL (2.5-4.9); Potassium, Blood 4.4 mmol/L (3.5-5.5); Sodium, Blood 139 mmol/L (136-145)
[2020-05-15 08:27] LABS: BASOPHILS ABSOLUTE AUTO 0.03 K/mm3 (0.00-0.23); BASOPHILS PERCENT AUTO 0 % (0-2); EOSINOPHILS ABSOLUTE AUTO 0.23 K/mm3 (0.00-0.68); EOSINOPHILS PERCENT AUTO 1 % (0-6); Hematocrit 18.4 % (37.0-53.0); Hemoglobin 6.4 g/dL (13.5-17.5); IMMATURE GRAN ABSOLUTE AUTO 0.38 K/mm3 (0.00-0.10); IMMATURE GRAN PERCENT AUTO 2 % (0-1); LYMPHOCYTES ABSOLUTE AUTO 1.56 K/mm3 (0.84-5.20); LYMPHOCYTES PERCENT AUTO 7 % (21-46); MONOCYTES ABSOLUTE AUTO 1.93 K/mm3 (0.16-1.47); MONOCYTES PERCENT AUTO 8 % (4-13); Mean Corpuscular HGB 29.1 pg (26.0-34.0); Mean Corpuscular HGB Conc 34.8 g/dL (31.5-36.5); Mean Corpuscular Volume 84 fL (80-100); Mean Platelet Volume 10.4 fL (9.1-12.4); NEUTROPHILS ABSOLUTE AUTO 18.93 K/mm3 (1.96-9.15); NEUTROPHILS PERCENT AUTO 82 % (41-73); Platelet Count 190 K/mm3 (150-400); RDW Coefficient Variation 13.5 % (11.7-14.2); RDW Standard Deviation 40.6 fL (35.1-46.3); White Blood Cell Count 23.06 K/mm3 (4.00-11.30)
[2020-05-15 12:29] LABS: Hematocrit 29.1 % (37.0-53.0); Hemoglobin 9.8 g/dL (13.5-17.5)
--- NOTE | 2020-05-15 12:42 | NUR ---
SUMMARY/DISCHARGE PT DISCHARGED-TRANSFERRED UP TO [facility] FOR GI, REPORT CALLED TO RAJIV RN, PT TAKEN UP VIA AMBULANCE
[2020-05-17 15:10] LABS: A/G RATIO 1.3 (0.7-1.7); ALBUMIN 2.3 g/dL (2.9-4.4); ALPHA-1-GLOBULIN 0.3 g/dL (0.0-0.4); ALPHA-2-GLOBULIN 0.7 g/dL (0.4-1.0); BETA GLOBULIN 0.6 g/dL (0.7-1.3); GAMMA GLOBULIN 0.2 g/dL (0.4-1.8); GLOBULIN, TOTAL 1.8 g/dL (2.2-3.9); IMMUNOGLOBULIN A, QN, SERUM 342 mg/dL (61-437); IMMUNOGLOBULIN G, QN, SERUM 220 mg/dL (603-1613); IMMUNOGLOBULIN M, QN, SERUM 27 mg/dL (15-143); M-SPIKE Not Observed g/dL (Not Observed); PROTEIN, TOTAL, SERUM 4.1 g/dL (6.0-8.5)
== END 2020-05-15 12:32 | disposition short-term general hospital (02) | DRG 871 ==
LOC: ER 15:55 → PCU 20:40 → MEDS 20:40 → PCU 22:26 → MEDS 05-09 18:17 → ENPENDDIS 05-15 12:07 → MEDS 05-15 12:32
PROVIDERS: Internal Medicine; Internal Medicine Infectious Disease; Internal Medicine Nephrology; Nurse Practitioner Acute Care; Physician Assistant; ADMIT Internal Medicine
PROC: 0JH63XZ Insertion of Tunneled Vascular Access Device into Chest Subcutaneous Tissue and Fascia, Percutaneous Approach (ICD-10-PCS; principal; 2020-05-11)
PROC: 02HV33Z Insertion of Infusion Device into Superior Vena Cava, Percutaneous Approach (ICD-10-PCS; 2020-05-11)
PROC: B5181ZA Fluoroscopy of Superior Vena Cava using Low Osmolar Contrast, Guidance (ICD-10-PCS; 2020-05-11)
PROC: 5A1D70Z Performance of Urinary Filtration, Intermittent, Less than 6 Hours Per Day (ICD-10-PCS; 2020-05-12)
PROC: 5A1D70Z Performance of Urinary Filtration, Intermittent, Less than 6 Hours Per Day (ICD-10-PCS; 2020-05-13)
PROC: 5A1D70Z Performance of Urinary Filtration, Intermittent, Less than 6 Hours Per Day (ICD-10-PCS; 2020-05-13)
PROC: 5A09357 Assistance with Respiratory Ventilation, Less than 24 Consecutive Hours, Continuous Positive Airway Pressure (ICD-10-PCS; 2020-05-13)
PROC: 5A1D70Z Performance of Urinary Filtration, Intermittent, Less than 6 Hours Per Day (ICD-10-PCS; 2020-05-14)
DX: A41.9 Sepsis, unspecified organism (principal); J96.01 Acute respiratory failure with hypoxia; J18.9 Pneumonia, unspecified organism; I33.0 Acute and subacute infective endocarditis; N17.0 Acute kidney failure with tubular necrosis; E87.2 Acidosis; E87.1 Hypo-osmolality and hyponatremia; D62 Acute posthemorrhagic anemia; N17.9 Acute kidney failure, unspecified; E11.22 Type 2 diabetes mellitus with diabetic chronic kidney disease; R65.20 Severe sepsis without septic shock; Z51.5 Encounter for palliative care; I12.9 Hypertensive chronic kidney disease with stage 1 through stage 4 chronic kidney disease, or unspecified chronic kidney disease; Z89.421 Acquired absence of other right toe(s); Z87.891 Personal history of nicotine dependence; Z59.0 Homelessness; I35.0 Nonrheumatic aortic (valve) stenosis; I05.0 Rheumatic mitral stenosis; E11.51 Type 2 diabetes mellitus with diabetic peripheral angiopathy without gangrene; E87.5 Hyperkalemia; E11.40 Type 2 diabetes mellitus with diabetic neuropathy, unspecified; Z79.4 Long term (current) use of insulin; E83.39 Other disorders of phosphorus metabolism; Z20.828 Contact with and (suspected) exposure to other viral communicable diseases; N18.30 Chronic kidney disease, stage 3 unspecified
CPT/HCPCS: 0202U; 36415; 36430; 36600; 51702; 71045; 71046; 74176; 76770; 76937; 78580; 80048; 80053; 80069; 80074; 80202; 81001; 82607; 82728; 82746; 82803; 82947; 83010; 83540; 83550; 83605; 83615; 83735; 83880; 84100; 84145; 84156; 84484; 85014; 85018; 85025; 85060; 85379; 85651; 86140; 86317; 86335; 86611; 86638; 86850; 86900; 86901; 86923; 87040; 87449; 93005; 93010; 93306; 93308; 93321; 93970; 93975; 94660; 94762; 96365; 96368; 96375; 97110; 97162; 97530; 99152; 99153; 99285-25; A9270; A9270-GY; A9540; C1750; C1769; C1894; C9113; J0360; J0456; J0610; J0690; J0696; J0881; J1644; J1650; J1940; J2060; J2250; J2405; J3010; J3370; J7030; J7050; P9016

== ENCOUNTER 2020-06-09 15:36 | Inpatient (IN) | payer OTHER, MEDICARE ==
[~2020-06-09] VITALS: Ht 165.1 cm; Wt 58.6 kg
[2020-06-09 16:07] LABS: Hematocrit 27.3 % (37.0-53.0); Hemoglobin 8.1 g/dL (13.5-17.5); Mean Corpuscular HGB 25.6 pg (26.0-34.0); Mean Corpuscular HGB Conc 29.7 g/dL (31.5-36.5); Mean Corpuscular Volume 86 fL (80-100); Mean Platelet Volume 9.2 fL (9.1-12.4); Platelet Count 357 K/mm3 (150-400); RDW Standard Deviation 47.7 fL (35.1-46.3); Red Blood Cell Count 3.17 M/mm3 (4.30-5.90); White Blood Cell Count 16.36 K/mm3 (4.00-11.30)
--- NOTE | 2020-06-09 16:32 | NUR ---
Stat Echocardiogram performed.
[2020-06-09 16:42] LABS: Creatine Kinase MB 6.2 ng/mL (0.0-3.6); Creatine Kinase MB Index 7.9 (0.0-4.0)
[2020-06-09 16:44] LABS: Alanine Aminotransfer (ALT/SGP 35 U/L (12-78); Albumin, Blood 2.3 g/dL (3.4-5.0); Albumin/Globulin Ratio 0.6 (0.8-1.8); Alk Phos 136 U/L (50-136); Anion Gap 10 mmol/L (6-16); Aspartate Aminotrans (AST/SGOT 36 U/L (12-37); Bilirubin, Total 0.5 mg/dL (0.1-1.0); Blood Urea Nitrogen 35 mg/dL (8-24); Bun/Creatinine Ratio 12.9 (12.0-20.0); CHOL/HDL RATIO 4.2; CO2, Blood 27 mmol/L (21-32); Calcium, Blood 8.8 mg/dL (8.5-10.1); Chloride, Blood 101 mmol/L (98-108); Cholesterol 121 mg/dL (50-200); Creatinine, Blood 2.71 mg/dL (0.60-1.20); Globulin, Blood 3.9 g/dL (2.2-4.0); Glomerular Filtration Rate 25 (60-); Glucose, Blood 109 mg/dL (70-99); HDL Cholesterol 29 mg/dL (>39); LDL/HDL RATIO 2.5; Low Density Lipoprotein Chol 73 mg/dL (0-110); Magnesium, Blood 2.3 mg/dL (1.6-2.4); Potassium, Blood 4.3 mmol/L (3.5-5.5); Sodium, Blood 138 mmol/L (136-145); Total Protein, Blood 6.2 g/dL (6.4-8.2); Triglycerides 96 mg/dL (30-160); Very Low Density Lipoprot Chol 19 mg/dL (6-32)
[2020-06-09] MEDS ORDERED: AMLO10 PO (16:58)
[2020-06-09] MEDS ORDERED: CLON.3 PO (16:58)
[2020-06-09] MEDS ORDERED: JARDIANCE25 MG PO (16:58)
[2020-06-09] MEDS ORDERED: HYDRA50 PO (17:00)
[2020-06-09] MEDS ORDERED: LATA.005SO BOTHEYES (17:00)
[2020-06-09] MEDS ORDERED: ASPI325EC PO (17:00)
[2020-06-09] MEDS ORDERED: INSULANPEN SC (17:00)
[2020-06-09] MEDS ORDERED: ZESTRIL40 M1 PO (17:00)
[2020-06-09] MEDS ORDERED: PANT40 PO (17:01)
[2020-06-09] MEDS ORDERED: GLUCOSE4 GM PO (17:02)
[2020-06-09] MEDS ORDERED: RENAL VITAMIN0.8 MG PO (17:02)
[2020-06-09 17:58] LABS: International Normalized Ratio 1.1; Prothrombin Time Results 11.7 Sec (9.7-11.5)
[2020-06-09 18:04] LABS: Influenza A, PCR NEGATIVE (NEGATIVE); Influenza B, PCR NEGATIVE (NEGATIVE); Resp Syncytial Virus, PCR NEGATIVE (NEGATIVE); SARS-Cov-2 (COVID-19) PCR, MMC NEGATIVE (NEGATIVE)
[2020-06-09 21:42] LABS: Source, Urine Catheter
[2020-06-09 21:45] LABS: Bilirubin, Urine Neg (Neg); Blood, Urine 5+ (Neg); Glucose Qualitative, Urine 3+ (Neg); Ketones, Urine 1+ (Neg); Leukocyte Esterase, Urine 3+ (Neg); Nitrite, Urine Neg (Neg); Protein, Urine 4+ (Neg); Specific Gravity, Urine 1.015 (1.003-1.022); Urobilinogen, Urine NORM (Normal)
[2020-06-09 21:50] LABS: Appearance, Urine Hazy (Clear); Color, Urine Yellow (P-Yellow)
[2020-06-09 21:51] LABS: Bacteria Many /hpf; Squamous Epithelial Cells Not Seen /hpf (Few); White Blood Cells, Urine TNTC /hpf (0-5)
[2020-06-09 22:13] LABS: Creatine Kinase MB 5.4 ng/mL (0.0-3.6); Creatine Kinase MB Index 8.7 (0.0-4.0)
[2020-06-10 04:12] LABS: BASOPHILS ABSOLUTE AUTO 0.01 K/mm3 (0.00-0.23); BASOPHILS PERCENT AUTO 0 % (0-2); EOSINOPHILS ABSOLUTE AUTO 0.03 K/mm3 (0.00-0.68); EOSINOPHILS PERCENT AUTO 0 % (0-6); Hematocrit 23.8 % (37.0-53.0); Hemoglobin 7.3 g/dL (13.5-17.5); IMMATURE GRAN ABSOLUTE AUTO 0.07 K/mm3 (0.00-0.10); IMMATURE GRAN PERCENT AUTO 1 % (0-1); LYMPHOCYTES ABSOLUTE AUTO 1.51 K/mm3 (0.84-5.20); LYMPHOCYTES PERCENT AUTO 12 % (21-46); MONOCYTES ABSOLUTE AUTO 0.96 K/mm3 (0.16-1.47); MONOCYTES PERCENT AUTO 8 % (4-13); Mean Corpuscular HGB 26.3 pg (26.0-34.0); Mean Corpuscular HGB Conc 30.7 g/dL (31.5-36.5); Mean Corpuscular Volume 86 fL (80-100); NEUTROPHILS ABSOLUTE AUTO 9.56 K/mm3 (1.96-9.15); NEUTROPHILS PERCENT AUTO 79 % (41-73); Platelet Count 271 K/mm3 (150-400); RDW Coefficient Variation 14.9 % (11.7-14.2); Red Blood Cell Count 2.78 M/mm3 (4.30-5.90); White Blood Cell Count 12.14 K/mm3 (4.00-11.30)
[2020-06-10 04:34] LABS: Albumin, Blood 2.1 g/dL (3.4-5.0); Anion Gap 9 mmol/L (6-16); Blood Urea Nitrogen 40 mg/dL (8-24); CO2, Blood 30 mmol/L (21-32); Calcium, Blood 8.4 mg/dL (8.5-10.1); Chloride, Blood 101 mmol/L (98-108); Creatinine, Blood 3.08 mg/dL (0.60-1.20); Glomerular Filtration Rate 21 (60-); Glucose, Blood 66 mg/dL (70-99); Magnesium, Blood 2.3 mg/dL (1.6-2.4); Phosphorus, Blood 5.5 mg/dL (2.5-4.9); Potassium, Blood 3.8 mmol/L (3.5-5.5); Sodium, Blood 140 mmol/L (136-145)
--- NOTE | 2020-06-10 05:43 | NUR ---
SHIFT SUMMARY PT ARRIVED TO THE UNIT AT 2047 LETHARGIC AND RESPONSIVE TO VERBAL STIMULI. UNABLE TO UNDERSTAND SPEECH, FOLLOWS DIRECTIONS. LEFT SIDED WEAKNESS THAT BECAME SLIGHTLY MORE NOTICEABLE BY AM. PUPILS SLUGGISH, LEFT SLIGHTLY LARGER THAN RIGHT, R4 L5. BLOOD GLUCOSE 54, GAVE .5 APM D50 AND BG UP TO 105 THEN DOWN TO 63 BY AM. NO LONG ACTING INSULIN GIVEN. BP 139 DOWN TO 110 SYSTOLIC BY AM. HR 100'S. O2 SATS 90'S. HGB 7.3 ON MORNING LABS. HEPARIN RUNNING T/O SHIFT, DC'D AT 0600. STRAIGHT CATH PT UPON ARRIVAL, DARK URINE WITH HIGH AMOUNT OF SEDIMENT, DARK BROWN IN COLOR. PT MORE ALERT AND UNDERSTANDABLE BY AM.
[2020-06-10 12:17] LABS: Hematocrit 32.3 % (37.0-53.0)
--- NOTE | 2020-06-10 19:01 | NUR ---
SHIFT SUMMARY PT A&Ox3; CALM AND COOPERATIVE WITH CARE. PT RESTING IN BED DURING SHIFT. PT DENIES SOB, PAIN, NAUSEA AND DIZZINESS. SPEECH THERAPY INTO SEE PT; PT ATE MECH/SOFT DIET; PT REPORTS FEELING LIKE NOODLE AND APPLE SAUCE GETTING STUCK IN THAORT; NOTIFIED SPEECH THERAPY AND DR FONTAINE; NEW ORDER FOR FULL LIQUID DIET. PT ABLE TO TAKE PILLS CRUSHED IN THICKENED LIQUIDS. PT HAD DIALYSIS THIS AM AND RECEIVIED 1 UNIT PRBC. BLADDER SCAN THIS EVENING 628cc DR ALVARENGA NOTIFIED; NEW ORDERS ENTERED. VSS. NO OTHER ACUTE CHANGES NOTED DURING SHIFT. REPORT GIVEN TO ONCOMING RN.
[2020-06-11 04:09] LABS: BASOPHILS ABSOLUTE AUTO 0.01 K/mm3 (0.00-0.23); BASOPHILS PERCENT AUTO 0 % (0-2); EOSINOPHILS ABSOLUTE AUTO 0.04 K/mm3 (0.00-0.68); EOSINOPHILS PERCENT AUTO 0 % (0-6); Hematocrit 29.1 % (37.0-53.0); Hemoglobin 8.7 g/dL (13.5-17.5); IMMATURE GRAN ABSOLUTE AUTO 0.08 K/mm3 (0.00-0.10); IMMATURE GRAN PERCENT AUTO 1 % (0-1); LYMPHOCYTES ABSOLUTE AUTO 1.14 K/mm3 (0.84-5.20); LYMPHOCYTES PERCENT AUTO 8 % (21-46); MONOCYTES ABSOLUTE AUTO 1.05 K/mm3 (0.16-1.47); MONOCYTES PERCENT AUTO 8 % (4-13); Mean Corpuscular HGB 25.4 pg (26.0-34.0); Mean Corpuscular HGB Conc 29.9 g/dL (31.5-36.5); Mean Corpuscular Volume 85 fL (80-100); Mean Platelet Volume 9.2 fL (9.1-12.4); NEUTROPHILS ABSOLUTE AUTO 11.42 K/mm3 (1.96-9.15); NEUTROPHILS PERCENT AUTO 83 % (41-73); Platelet Count 296 K/mm3 (150-400); RDW Coefficient Variation 15.5 % (11.7-14.2); RDW Standard Deviation 48.1 fL (35.1-46.3); Red Blood Cell Count 3.42 M/mm3 (4.30-5.90); White Blood Cell Count 13.74 K/mm3 (4.00-11.30)
[2020-06-11 04:29] LABS: Albumin, Blood 2.1 g/dL (3.4-5.0); Anion Gap 10 mmol/L (6-16); Blood Urea Nitrogen 32 mg/dL (8-24); CO2, Blood 30 mmol/L (21-32); Calcium, Blood 8.3 mg/dL (8.5-10.1); Chloride, Blood 104 mmol/L (98-108); Creatinine, Blood 2.67 mg/dL (0.60-1.20); Glomerular Filtration Rate 25 (60-); Glucose, Blood 183 mg/dL (70-99); Magnesium, Blood 2.1 mg/dL (1.6-2.4); Phosphorus, Blood 4.7 mg/dL (2.5-4.9); Potassium, Blood 3.6 mmol/L (3.5-5.5); Prostate Specific Antigen 0.115 ng/mL (0.000-4.000); Sodium, Blood 144 mmol/L (136-145)
--- NOTE | 2020-06-11 05:42 | NUR ---
SHIFT SUMMARY PT ALERT AND ORIENTED X 4. PT AGGITATED T/O SHIFT. REPOSITIONED Q 2 HRS AND NEEDED FOR COMFORT. PT REPORTS PAIN IN COCCYX AREA. REPORTS RELIEF WITH REPOSITIONING. POLANCO PATENT TO GRAVITY DRAIN. OXYGEN SATURATION MAINTAINED ABOVE 94% ON RA. HR STABLE. BP STABLE. PT REPORTS NO CP OR PRESSURE T/O SHIFT. PT REFUSING CARE AT TIMES. BARRIER CREAM ON RED COCCYX. PT REFUSING MEPLEX. WILL CONTINUE TO MONITOR UNTIL REPORT GIVEN TO RANDY PARRISH.
--- NOTE | 2020-06-11 06:57 | NUR ---
PT REFUSING PT REFUSING AM MEDICATIONS AT THIS TIME.
--- NOTE | 2020-06-11 09:22 | NUR ---
PT TO DIALYSIS
--- NOTE | 2020-06-11 17:21 | NUR ---
SHIFT SUMMARY PT A&Ox3; PT UNCOOPERATIVE WITH CARE AT TIMES. PT REFUSING REPOSITIONING, REPOSITIONED SELF FOR COMFORT. PT DENIES PAIN, SOB AND NAUSEA. PT HAD DIALYSIS THIS AM. VSS. NO OTHER ACUTE CHANGES NOTED DURING SHIFT. NO OTHER ACUTE CHANGES NOTED DURING SHIFT. WILL CONTINUE TO MONITOR UNITL REPORT GIVEN TO ONCOMING RN.
[2020-06-12 04:01] LABS: BASOPHILS ABSOLUTE AUTO 0.01 K/mm3 (0.00-0.23); BASOPHILS PERCENT AUTO 0 % (0-2); EOSINOPHILS ABSOLUTE AUTO 0.06 K/mm3 (0.00-0.68); EOSINOPHILS PERCENT AUTO 1 % (0-6); Hematocrit 26.7 % (37.0-53.0); Hemoglobin 8.4 g/dL (13.5-17.5); IMMATURE GRAN ABSOLUTE AUTO 0.07 K/mm3 (0.00-0.10); IMMATURE GRAN PERCENT AUTO 1 % (0-1); LYMPHOCYTES ABSOLUTE AUTO 1.47 K/mm3 (0.84-5.20); LYMPHOCYTES PERCENT AUTO 11 % (21-46); MONOCYTES ABSOLUTE AUTO 0.95 K/mm3 (0.16-1.47); MONOCYTES PERCENT AUTO 7 % (4-13); Mean Corpuscular HGB 26.4 pg (26.0-34.0); Mean Corpuscular HGB Conc 31.5 g/dL (31.5-36.5); Mean Corpuscular Volume 84 fL (80-100); Mean Platelet Volume 9.3 fL (9.1-12.4); NEUTROPHILS ABSOLUTE AUTO 10.51 K/mm3 (1.96-9.15); NEUTROPHILS PERCENT AUTO 80 % (41-73); Platelet Count 225 K/mm3 (150-400); RDW Coefficient Variation 15.1 % (11.7-14.2); Red Blood Cell Count 3.18 M/mm3 (4.30-5.90); White Blood Cell Count 13.07 K/mm3 (4.00-11.30)
[2020-06-12 04:22] LABS: Anion Gap 8 mmol/L (6-16); Blood Urea Nitrogen 26 mg/dL (8-24); Bun/Creatinine Ratio 11.1 (12.0-20.0); CO2, Blood 32 mmol/L (21-32); Calcium, Blood 8.1 mg/dL (8.5-10.1); Chloride, Blood 102 mmol/L (98-108); Creatinine, Blood 2.34 mg/dL (0.60-1.20); Glomerular Filtration Rate 29 (60-); Glucose, Blood 95 mg/dL (70-99); Magnesium, Blood 2.1 mg/dL (1.6-2.4); Phosphorus, Blood 3.6 mg/dL (2.5-4.9); Potassium, Blood 3.3 mmol/L (3.5-5.5); Sodium, Blood 142 mmol/L (136-145)
--- NOTE | 2020-06-12 06:17 | NUR ---
SHIFT SUMMARY PT A&O X4. VSS. SPO2 > 92% ON RA. MONITOR SHOWS AFIB, HR 90's-110's. PT DENIES PAIN/DISCOMFORT THIS SHIFT. COLLIN VYAS PATENT & DRAINING. Q2H REPOSIITONING. PT COOPERATIVE W/ CARE. NO EVENTS OVER NIGHT. WILL CONTINUE TO MONITOR & PROVIDE CARE UNTIL REPORT OFF TO DAY SHIFT RN.
--- NOTE | 2020-06-12 16:04 | NUR ---
Spiritual care visit conducted. Patient is sitting up in bed and alert. Patient tells me about his medical conditions and then empahasizes that his medical goal is to go home with assistance from home health. Then patient talks a length about his synagogue views leaving little room for another view. Patient is pleasant though. Towards the end of his visit he states again his desire to go home with whatever services are available to help him do so. I provide therapeutic listening and prayer. I will continue to remain available to patient and family.
--- NOTE | 2020-06-12 19:16 | NUR ---
SHIFT SUMMARY: NO ACUTE CHANGES T/OUT SHIFT. PT CONTINUES A&OX4, RESP EVEN AND UNLABORED, AFIB ON MONITOR WITH RATE 100-115. MRI SCREENING FORM COMPLETED AND TURNED IN, AWAITING SCAN TIME. PT RE-EVALUATED BY SPEECH THERAPY AND CLEARED TO CONTINUE [facility] SOFT DIET. NEXT DIALYSIS TO BE 06/13. REPORT TO FRANCOIS CAMARA TO ASSUME CARE OF PT.
--- NOTE | 2020-06-12 23:55 | NUR ---
IRRITABLE / REPOSITIONING REFUSAL PT IRRITATED "YOU GUYS ARE ALWAYS COMING IN HERE ALL THE TIME. LEAVE ME ALONE. I DON'T WANT TO BE MOVED. MY BUTT HURTS & IT's ALWAYS HURT." PT ENCOURAGED TO ALLOW CONTINUED REPOSITIONING FOR FURTHER SKIN BREAK DOWN OF COCCYX/BUTTOCKS W/ PT ONLY BECOMING MORE AGITATED. PILLOW REMOVED FROM UNDER L HIP AT THIS TIME W/ PT REFUSAL OF ROTATION TO OTHER SIDE. WILL CONTINUE TO ENCOURAGE REPOSITIONING AGAIN LATER ON.
--- NOTE | 2020-06-13 03:21 | NUR ---
LOW O2 PT SPO2 87% ON RA W/ PT REFUSAL OF OXYGEN SUPPLEMENTATION. PT CONTINUOUS PULSE OX INTERMITTENTLY ALARMING D/T DESAT W/ PT CONTINUED REFUSAL OF NC UNTIL SPO2 REACHED 83%, THEN PT AGREEABLE. 2L NC APPLIED, TITRATED TO 5L FOR SPO2 > 90%.
[2020-06-13 03:46] LABS: BASOPHILS ABSOLUTE AUTO 0.02 K/mm3 (0.00-0.23); BASOPHILS PERCENT AUTO 0 % (0-2); EOSINOPHILS PERCENT AUTO 1 % (0-6); Hemoglobin 8.7 g/dL (13.5-17.5); IMMATURE GRAN ABSOLUTE AUTO 0.11 K/mm3 (0.00-0.10); IMMATURE GRAN PERCENT AUTO 1 % (0-1); LYMPHOCYTES ABSOLUTE AUTO 1.35 K/mm3 (0.84-5.20); LYMPHOCYTES PERCENT AUTO 8 % (21-46); MONOCYTES ABSOLUTE AUTO 1.14 K/mm3 (0.16-1.47); MONOCYTES PERCENT AUTO 7 % (4-13); Mean Corpuscular HGB 25.4 pg (26.0-34.0); Mean Corpuscular Volume 85 fL (80-100); Mean Platelet Volume 9.7 fL (9.1-12.4); NEUTROPHILS ABSOLUTE AUTO 13.93 K/mm3 (1.96-9.15); NEUTROPHILS PERCENT AUTO 84 % (41-73); Platelet Count 247 K/mm3 (150-400); RDW Standard Deviation 46.1 fL (35.1-46.3); Red Blood Cell Count 3.43 M/mm3 (4.30-5.90); White Blood Cell Count 16.65 K/mm3 (4.00-11.30)
[2020-06-13 04:04] LABS: Albumin, Blood 2.2 g/dL (3.4-5.0); Anion Gap 10 mmol/L (6-16); Blood Urea Nitrogen 37 mg/dL (8-24); Bun/Creatinine Ratio 12.5 (12.0-20.0); CO2, Blood 29 mmol/L (21-32); Calcium, Blood 8.1 mg/dL (8.5-10.1); Chloride, Blood 102 mmol/L (98-108); Creatinine, Blood 2.96 mg/dL (0.60-1.20); Glomerular Filtration Rate 22 (60-); Glucose, Blood 155 mg/dL (70-99); Phosphorus, Blood 3.8 mg/dL (2.5-4.9); Potassium, Blood 3.6 mmol/L (3.5-5.5); Sodium, Blood 141 mmol/L (136-145)
--- NOTE | 2020-06-13 06:39 | NUR ---
SHIFT SUMMARY PT A&O X4, INTERMITTENTLY CALM & COOPERATIVE OR IRRITABLE & REFUSING CARE. PT VSS. SPO2 > 92% ON RA, UNTIL APPROX 0230 PT SPO2 BEGINNING TO INTERMITTENTLY DESAT TO 86-88%, SEE PREVIOUS O2 NOTE. PT NOW WEARING 5L NC THIS AM FOR SPO2 > 90%. MONITOR SHOWS AFIB, HR 100-110's W/ HR DECREASE TO 60's-70's FROM [id number]. SEE RHYTHM STRIP. POLANCO CATH PATENT & DRAINING. NO OTHER EVENTS OVER NIGHT.
--- NOTE | 2020-06-13 09:50 | NUR ---
ASSUMED CARE, MORNING UPDATE PT WAS SLEEPING DURING REPORT FROM NOC RN. PT SOON WOKE UP FOR BREAKFAST AND MEDS. PT WAS AGREEABLE TO TAKING MORNING MEDICATIONS WHILE FINISHING HIS BREAKFAST. PT SAT UP AND WAS ABLE TO EAT BREAKFAST WITHOUT ANY ISSUE SWALLOWING. PT ON 5L O2 VIA NC, VS STABLE, PT IN AFIB SLIGHT ELEVATED HR 90s-110s. PT GONE FOR DIALYSIS THIS MORNING AT APPROXIMATELY 0900
--- NOTE | 2020-06-13 17:30 | NUR ---
Spoke with Bedside RN Dora and discussed case prior to Pt visit. Pt resting in bed upon arrival. Pt has friend Abdiel (Clay) at bedside. Pt appears frail and slightly confused. Abdiel reports Pt is confused due to having dialysis today. Discussed plan of care and concerns. Pt tends to be some what withdrawn during visit. Discussed with Abdiel the importance of Pt considering wishes for life sustaining treatment including CPR. Educated on life sustaining treatment including risk factors. Reviewed cardiologists note and the importance of planning for the future as disease process takes its coarse. Encouraged Abdiel to have conversations with Pt regarding wishes and goals. Plan to F/U tommorrow for continued therapeutic visits. Palliative Care will remain available.
--- NOTE | 2020-06-13 18:15 | NUR ---
PT ARRIVED TO ROOM 355 VIA BED. PT ALERT AND AWAKE. PT ORIENTED TO ROOM AND CALL SYSTEM, CALL LIGHT IN REACH. TELE AFIB AT 122, PER PCU FILM ARCHIVIST PT HAS BEEN 110-120'S. WILL REPORT TO NIGHT RN.
--- NOTE | 2020-06-14 04:10 | NUR ---
PT with multiple medical problems including homeless & ESRD on hemodialysis continues on oxygen 3 to 5 liters to keep sats greater than 90%. He is on tele monitor afib. He is irritable when awake sleeps most of shift. Set off bed alarm several times attempting to climb out of bed unassisted. PT has coude cath for urinary retention. [place] tinged urine. BG elevated greater than 200 hs gets semglee insulin. On antibiotics IV to treat infection. Has rt foot wound vac from [facility] patent rt foot. DC planning to return to [facility] ongoing. Aspiration precautions in place. minimal oral intake this shift.
[2020-06-14 04:57] LABS: BASOPHILS ABSOLUTE AUTO 0.02 K/mm3 (0.00-0.23); BASOPHILS PERCENT AUTO 0 % (0-2); EOSINOPHILS ABSOLUTE AUTO 0.09 K/mm3 (0.00-0.68); EOSINOPHILS PERCENT AUTO 1 % (0-6); Hematocrit 30.5 % (37.0-53.0); Hemoglobin 9.2 g/dL (13.5-17.5); IMMATURE GRAN ABSOLUTE AUTO 0.08 K/mm3 (0.00-0.10); IMMATURE GRAN PERCENT AUTO 1 % (0-1); LYMPHOCYTES ABSOLUTE AUTO 1.28 K/mm3 (0.84-5.20); LYMPHOCYTES PERCENT AUTO 9 % (21-46); MONOCYTES ABSOLUTE AUTO 0.81 K/mm3 (0.16-1.47); MONOCYTES PERCENT AUTO 6 % (4-13); Mean Corpuscular HGB 25.7 pg (26.0-34.0); Mean Corpuscular HGB Conc 30.2 g/dL (31.5-36.5); Mean Corpuscular Volume 85 fL (80-100); Mean Platelet Volume 9.2 fL (9.1-12.4); NEUTROPHILS ABSOLUTE AUTO 12.53 K/mm3 (1.96-9.15); NEUTROPHILS PERCENT AUTO 85 % (41-73); Platelet Count 229 K/mm3 (150-400); RDW Coefficient Variation 14.9 % (11.7-14.2); RDW Standard Deviation 45.9 fL (35.1-46.3); Red Blood Cell Count 3.58 M/mm3 (4.30-5.90); White Blood Cell Count 14.81 K/mm3 (4.00-11.30)
[2020-06-14 05:13] LABS: Albumin, Blood 2.2 g/dL (3.4-5.0); Anion Gap 9 mmol/L (6-16); Blood Urea Nitrogen 33 mg/dL (8-24); Bun/Creatinine Ratio 13.1 (12.0-20.0); CO2, Blood 30 mmol/L (21-32); Calcium, Blood 8.4 mg/dL (8.5-10.1); Chloride, Blood 102 mmol/L (98-108); Creatinine, Blood 2.52 mg/dL (0.60-1.20); Glomerular Filtration Rate 27 (60-); Glucose, Blood 183 mg/dL (70-99); Phosphorus, Blood 3.8 mg/dL (2.5-4.9); Potassium, Blood 3.7 mmol/L (3.5-5.5); Sodium, Blood 141 mmol/L (136-145)
--- NOTE | 2020-06-14 15:58 | NUR ---
ALERT. ORIENTED. MULTIPLE MEDICAL PROBLEMS. DOES NOT WANT OXYGEN HIGHER THAN 3 LPM. ON CONTINUOUS SAT MONITOR JUST PUT ON THIS AFTERNOON AND HAS NOT SET IT OFF WHILE ON 3 LPM VIA N/C. TELE ON AND PER TECH HAS BEEN AFIB 110'S AND BELOW. DRESSING TAKEN OFF LEFT LEG WHERE HE HAD "BLISTERS". LEG DRY WITH VERY POOR SKIN TURGOR AND DEEP CREVASSES TO SKIN.PRESSURE ULCER TO LEFT HEEL, CLEANED AND FOAM WITH BORDER APPLIED. DRESSING AND V.A. WOUND VAC TO RT LEG TAKEN OFF. ORDER FOR HOSPITAL WOUND VAC RECEIVED AND APPLIED. RT LEG WITH VERY POOR SKIN TURGOR AND VERY DEEP CREVASSES TO SKIN. UNABLE TO PALPATE PULSES ON BOTH LEGS, BUT GOOD TIBIAL PULSES WITH DOPPLER. PICS TAKEN. VERY POOR CIRCULATION. WILL NEED SOME SORT OF ASSISTANCE WHEN D'C. STS LIVES WITH"A FRIEND".IV PATENT. MOSTLY WHEELCHAIR BOUND AND HAS HIS OWN CHAIR HERE. DOES NOT WANT TO BE TURNED. DID HAVE HIM UP TO WHEELCHAIR TODAY. JERAD.
--- NOTE | 2020-06-14 16:23 | NUR ---
Pt resting in bed upon arrival. Pt denies pain at this time. Assessed Pt's understanding of current condition and recommendations. Pt appears to have low understanding and poor insight. Pt states he has a strong heart and denies having CVA. Pt struggles with understanding of having NSTEMI and states "I didn't feel anything". Discussed diagnostic testing and findings. Offered therapeutic listening and answered questions. Pt's speach difficult to understand. Discussed code status and educated on life sustaining measures including risk factors. Pt reports wanting to remain a full code. Discuss[facility] with [facility] stating "I can't stay there, I have bills to pay". Pt inquires about staying at his friend's home and having some one come in periodically to provide care. Discussed the potential of needing radio time sales supervisor care giving support. Continued therapeutic listening. Spoke with Bedside RN Maribell and discussed case. Pt may benefit from comprehension evaulation from ST if appropriate. Palliative Care will remain available.
--- NOTE | 2020-06-14 16:40 | NUR ---
Late Entry from previous visit note. Faxed request for Advanced Directive or [facility]ST to [facility]. Response from [facility] states no records on file for AD or POLST.
--- NOTE | 2020-06-14 23:14 | NUR ---
[id number] PT IRRITIBLE. RN TAKING CARE OF PATIENT AND PASSING OUT NIGHTLY MEDS. PT POINTS FINGER AT RN AND DEMANDED NOT FOR STAFF NOT TO COME BACK AGAIN TONIGHT. WILL CONTINUE TO MONITOR.
[2020-06-15 05:05] LABS: BASOPHILS ABSOLUTE AUTO 0.02 K/mm3 (0.00-0.23); BASOPHILS PERCENT AUTO 0 % (0-2); EOSINOPHILS ABSOLUTE AUTO 0.13 K/mm3 (0.00-0.68); EOSINOPHILS PERCENT AUTO 1 % (0-6); Hemoglobin 9.2 g/dL (13.5-17.5); IMMATURE GRAN ABSOLUTE AUTO 0.11 K/mm3 (0.00-0.10); IMMATURE GRAN PERCENT AUTO 1 % (0-1); LYMPHOCYTES ABSOLUTE AUTO 1.17 K/mm3 (0.84-5.20); LYMPHOCYTES PERCENT AUTO 7 % (21-46); MONOCYTES ABSOLUTE AUTO 1.01 K/mm3 (0.16-1.47); MONOCYTES PERCENT AUTO 6 % (4-13); Mean Corpuscular HGB 25.5 pg (26.0-34.0); Mean Corpuscular HGB Conc 29.7 g/dL (31.5-36.5); Mean Corpuscular Volume 86 fL (80-100); Mean Platelet Volume 9.2 fL (9.1-12.4); NEUTROPHILS ABSOLUTE AUTO 15.32 K/mm3 (1.96-9.15); NEUTROPHILS PERCENT AUTO 86 % (41-73); Platelet Count 234 K/mm3 (150-400); RDW Coefficient Variation 15.3 % (11.7-14.2); RDW Standard Deviation 47.8 fL (35.1-46.3); Red Blood Cell Count 3.61 M/mm3 (4.30-5.90); White Blood Cell Count 17.76 K/mm3 (4.00-11.30)
[2020-06-15 05:22] LABS: Albumin, Blood 2.1 g/dL (3.4-5.0); Anion Gap 7 mmol/L (6-16); Blood Urea Nitrogen 43 mg/dL (8-24); Bun/Creatinine Ratio 14.6 (12.0-20.0); CO2, Blood 32 mmol/L (21-32); Calcium, Blood 8.7 mg/dL (8.5-10.1); Chloride, Blood 105 mmol/L (98-108); Creatinine, Blood 2.95 mg/dL (0.60-1.20); Glomerular Filtration Rate 22 (60-); Glucose, Blood 133 mg/dL (70-99); Magnesium, Blood 2.1 mg/dL (1.6-2.4); Potassium, Blood 3.9 mmol/L (3.5-5.5); Sodium, Blood 144 mmol/L (136-145)
--- NOTE | 2020-06-15 05:31 | NUR ---
manager shift summary pt a/o x4. irritable whenever care is provided. pt not pleasant towards staff members. pt has refused to have reposition him even with education on skin care. dressing on right lower extremity is c.d.i with wound vac. pt refused to have rn put meplex on. vss. denies pain. no acute changes. call light within reach.
--- NOTE | 2020-06-15 05:47 | NUR ---
night nurse summary pt a/o with forgetfulness. daughter at bedside. slept well tonight. a. fib in the 70's per telemarketing fundraiser. room air, no sob noted. vss, call light within reach, bed alarm in place. denies pain. no acute changes.
--- NOTE | 2020-06-15 13:04 | NUR ---
Spiritual care visit conducted. Patient tells me that he has been feeling weak and fatigued. 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 I encourage patient about the power of having a felt meaning an purpose to keep striving for his own health. Patient's Dialysis team comes into patient's room so I step out and let them do their work. I will continue to remain available to patient and family
--- NOTE | 2020-06-15 14:56 | NUR ---
REFUSED TO HAVE IV CHANGED PT REFUSED TO HAVE IV CHANGED, EVEN THOUGH IT IS RECOMMENDED AT THIS TIME. PT EDUCATED ON THE RISKS OF LEAVING IT IN. PT STATES "NOT NOW" FOR A NEW IV.
--- NOTE | 2020-06-15 18:44 | NUR ---
SHIFT SUMMARY PT REFUSED PHYSICAL THERAPY TODAY. AGREEABLE TO MOST REPOSITIONS. PT HAD DIALYSIS TODAY. VIPIN BUCHANAN, MEAT GRADER SPOKE WITH PT ABOUT THE NEED TO START MOVING AND WORKING TO IMPROVE MOBILITY. PT AGREES THAT HE NEEDS TO START WORKING WITH THERAPY AT THIS TIME. PT CONTINUES TO BE IRRITABLE WITH SOME CARE, BUT OVERALL COMPLIANT. WOUND VAC INTACT & SEALED WELL. PT REFUSED FOR IV TO BE CHANGED. NO OTHER ACUTE CHANGES IN ASSESSMENT AT THIS TIME. VS REVIEWED. PT UP IN BED. CALL LIGHT IN REACH. DENIES OTHER NEEDS AT THIS TIME.
[2020-06-16 05:37] LABS: BASOPHILS ABSOLUTE AUTO 0.02 K/mm3 (0.00-0.23); BASOPHILS PERCENT AUTO 0 % (0-2); EOSINOPHILS ABSOLUTE AUTO 0.17 K/mm3 (0.00-0.68); EOSINOPHILS PERCENT AUTO 1 % (0-6); Hematocrit 32.6 % (37.0-53.0); Hemoglobin 9.8 g/dL (13.5-17.5); IMMATURE GRAN ABSOLUTE AUTO 0.15 K/mm3 (0.00-0.10); IMMATURE GRAN PERCENT AUTO 1 % (0-1); LYMPHOCYTES ABSOLUTE AUTO 1.25 K/mm3 (0.84-5.20); LYMPHOCYTES PERCENT AUTO 8 % (21-46); MONOCYTES PERCENT AUTO 7 % (4-13); Mean Corpuscular HGB Conc 30.1 g/dL (31.5-36.5); Mean Corpuscular Volume 87 fL (80-100); Mean Platelet Volume 9.5 fL (9.1-12.4); NEUTROPHILS ABSOLUTE AUTO 12.91 K/mm3 (1.96-9.15); NEUTROPHILS PERCENT AUTO 83 % (41-73); Platelet Count 224 K/mm3 (150-400); RDW Coefficient Variation 15.5 % (11.7-14.2); RDW Standard Deviation 48.9 fL (35.1-46.3); Red Blood Cell Count 3.77 M/mm3 (4.30-5.90)
[2020-06-16 06:03] LABS: Albumin, Blood 2.1 g/dL (3.4-5.0); Anion Gap 9 mmol/L (6-16); Blood Urea Nitrogen 32 mg/dL (8-24); Bun/Creatinine Ratio 13.9 (12.0-20.0); CO2, Blood 31 mmol/L (21-32); Calcium, Blood 8.5 mg/dL (8.5-10.1); Chloride, Blood 102 mmol/L (98-108); Creatinine, Blood 2.31 mg/dL (0.60-1.20); Glomerular Filtration Rate 30 (60-); Glucose, Blood 172 mg/dL (70-99); Magnesium, Blood 1.9 mg/dL (1.6-2.4); Phosphorus, Blood 2.9 mg/dL (2.5-4.9); Potassium, Blood 3.9 mmol/L (3.5-5.5); Sodium, Blood 142 mmol/L (136-145)
--- NOTE | 2020-06-16 06:28 | NUR ---
TRAM OPERATOR SUMMARY PT A/O X4. SEEMS TO BE MORE COOPERTIVE WITH CARE TONIGHT EVEN THOUGH STILL IRRITATED. FREQUENT REPOSITIONING PROVIDED, MEPLEX PLACED ON COCCYX AREA FOR PRESSURE ULCER. POLANCO PATENT AND DRAINING DARK URINE. CALL LIGHT WITHIN REACH. A. FIB IN THE HIGH 90'S PER INTERNATIONAL TRADE SPECIALIST. PT DENIES PAIN. VSS. NO ACUTE CHANGES.
--- NOTE | 2020-06-16 18:25 | NUR ---
PT HAD NO ACUTE CHANGES. POLANCO PULLED. PT VOIDED. PT HAD WOUND VAC DRESSING CHANGED THIS SHIFT. TO DISCHARGE FRIDAY TO SNF. CALL LIGHT WITHIN REACH. BED LOW.
[2020-06-17 04:34] LABS: BASOPHILS ABSOLUTE AUTO 0.02 K/mm3 (0.00-0.23); BASOPHILS PERCENT AUTO 0 % (0-2); EOSINOPHILS ABSOLUTE AUTO 0.15 K/mm3 (0.00-0.68); EOSINOPHILS PERCENT AUTO 1 % (0-6); Hematocrit 29.7 % (37.0-53.0); Hemoglobin 8.9 g/dL (13.5-17.5); IMMATURE GRAN ABSOLUTE AUTO 0.09 K/mm3 (0.00-0.10); IMMATURE GRAN PERCENT AUTO 1 % (0-1); LYMPHOCYTES ABSOLUTE AUTO 1.17 K/mm3 (0.84-5.20); LYMPHOCYTES PERCENT AUTO 9 % (21-46); MONOCYTES ABSOLUTE AUTO 1.06 K/mm3 (0.16-1.47); MONOCYTES PERCENT AUTO 8 % (4-13); Mean Corpuscular HGB 25.9 pg (26.0-34.0); Mean Corpuscular Volume 86 fL (80-100); Mean Platelet Volume 9.4 fL (9.1-12.4); NEUTROPHILS ABSOLUTE AUTO 10.29 K/mm3 (1.96-9.15); NEUTROPHILS PERCENT AUTO 80 % (41-73); Platelet Count 196 K/mm3 (150-400); RDW Coefficient Variation 15.7 % (11.7-14.2); RDW Standard Deviation 49.5 fL (35.1-46.3); Red Blood Cell Count 3.44 M/mm3 (4.30-5.90); White Blood Cell Count 12.78 K/mm3 (4.00-11.30)
[2020-06-17 04:55] LABS: Albumin/Globulin Ratio 0.6 (0.8-1.8); Bilirubin, Total 0.4 mg/dL (0.1-1.0); Bun/Creatinine Ratio 15.9 (12.0-20.0); Calcium, Blood 8.2 mg/dL (8.5-10.1); Creatinine, Blood 2.95 mg/dL (0.60-1.20); Globulin, Blood 3.2 g/dL (2.2-4.0); Phosphorus, Blood 3.2 mg/dL (2.5-4.9); Potassium, Blood 3.9 mmol/L (3.5-5.5); Total Protein, Blood 5.2 g/dL (6.4-8.2)
--- NOTE | 2020-06-17 06:56 | NUR ---
SHIFT SUMMARY: A&O X3, VSS, RESISTANT TO T&P, MULTIPLE PENCIL POINT OPEN AREAS ON COCCYX, NO DRAINAGE. WOUND IS WASHED AND DRSG IS CHANGED. VOIDING DARK TEACOLORED URINE 200 ML, INC. OF A SMALL AMOUNT X1. WOUND VAC, 120MM, IS IN PLACE ON R FOOT AND THERE IS A MEPILEX ON EACH HEEL. BED ALARM IS ON FOR SAFETY. PERMA CATH, R CHEST WALL HAS A DSD COVERING.
--- NOTE | 2020-06-17 17:20 | NUR ---
PT IS A/OX3, COOPERATIVE IRRITABLE, PT DENIES PAIN, THE PT WORKED WITH THE PHYSICAL THERAPIST TODAY OTHERWISE DECLINED TO GET UP OUT OF BED DUE TO THE WOUND VAC ON HIS RIGHT FOOT, THE PTS HAD A BM TODAY WAS CLEANED AND A NEW MEPILEX PAD APPLIED TO THE COCCYX, PT HAD DIALYSIS TODAY AND TOLERATED THE PROCEDURE WELL, THE PT APPEARS TO BE BREATHING EASILY ON O2 AT REST, CONTINUOS BIOX ON, CALL LIGHT IN REACH WILL CONTINUE TO MONITOR AND ASSESS FOR CHANGES
[2020-06-18 04:51] LABS: BASOPHILS ABSOLUTE AUTO 0.02 K/mm3 (0.00-0.23); BASOPHILS PERCENT AUTO 0 % (0-2); EOSINOPHILS ABSOLUTE AUTO 0.23 K/mm3 (0.00-0.68); EOSINOPHILS PERCENT AUTO 2 % (0-6); Hematocrit 29.3 % (37.0-53.0); Hemoglobin 8.7 g/dL (13.5-17.5); IMMATURE GRAN ABSOLUTE AUTO 0.06 K/mm3 (0.00-0.10); IMMATURE GRAN PERCENT AUTO 1 % (0-1); LYMPHOCYTES ABSOLUTE AUTO 1.62 K/mm3 (0.84-5.20); LYMPHOCYTES PERCENT AUTO 12 % (21-46); MONOCYTES PERCENT AUTO 10 % (4-13); Mean Corpuscular HGB 25.5 pg (26.0-34.0); Mean Corpuscular HGB Conc 29.7 g/dL (31.5-36.5); Mean Corpuscular Volume 86 fL (80-100); Mean Platelet Volume 9.1 fL (9.1-12.4); NEUTROPHILS ABSOLUTE AUTO 10.07 K/mm3 (1.96-9.15); NEUTROPHILS PERCENT AUTO 76 % (41-73); Platelet Count 194 K/mm3 (150-400); RDW Coefficient Variation 15.5 % (11.7-14.2); RDW Standard Deviation 48.5 fL (35.1-46.3); Red Blood Cell Count 3.41 M/mm3 (4.30-5.90)
[2020-06-18 05:12] LABS: Alanine Aminotransfer (ALT/SGP 17 U/L (12-78); Albumin/Globulin Ratio 0.6 (0.8-1.8); Alk Phos 109 U/L (50-136); Anion Gap 5 mmol/L (6-16); Aspartate Aminotrans (AST/SGOT 13 U/L (12-37); Bilirubin, Direct <0.1 mg/dL (0.0-0.3); Bilirubin, Indirect Unable to Calculate mg/dL (0.1-0.7); Bilirubin, Total 0.4 mg/dL (0.1-1.0); Blood Urea Nitrogen 45 mg/dL (8-24); Bun/Creatinine Ratio 18.2 (12.0-20.0); CO2, Blood 32 mmol/L (21-32); Calcium, Blood 8.3 mg/dL (8.5-10.1); Chloride, Blood 105 mmol/L (98-108); Creatinine, Blood 2.47 mg/dL (0.60-1.20); Globulin, Blood 3.2 g/dL (2.2-4.0); Glomerular Filtration Rate 27 (60-); Glucose, Blood 163 mg/dL (70-99); Magnesium, Blood 1.8 mg/dL (1.6-2.4); Phosphorus, Blood 2.8 mg/dL (2.5-4.9); Potassium, Blood 4.4 mmol/L (3.5-5.5); Sodium, Blood 142 mmol/L (136-145); Total Protein, Blood 5.2 g/dL (6.4-8.2)
--- NOTE | 2020-06-18 05:48 | NUR ---
SHIFT SUMMARY: A&OX3, VSS, PATIENT IS REFUSING CARES, WILL ONLY ALOW OCCASSIONAL REPOSITIONING. TRADEMARK ATTORNEY ALERTS METAL FURNITURE ASSEMBLER PATIENT HAS FECES ON HANDS. PATIENT IS REFUSING TO WASH HANDS, ALLOW T&P OR PIETRO CARE. EDUCATION IS GIVEN AND PATIENT CONTINUES TO REFUSE. CHARGE NURSE IN MADE AWARE.
--- NOTE | 2020-06-18 11:06 | NUR ---
PT REFUSED TO LET CARBON PAPER MACHINE OPERATOR CLEAN HIM UP HAD BM MADE ADVERTISING SALES MANAGER WAIT UNTIL AFTER BREAKFAST BEFORE WOULD LET HIM GET CLEANED UP, HAD COMPLETE BED BATH, LINEN CHANGE, VERY PARTICULAR ON HOW WANTED THINGS TO BE DONE.
--- NOTE | 2020-06-18 19:15 | NUR ---
pPT IS A/OX3, COOPERATIVE IRRITABLE WITH CARE AND AT TIMES NON COMPLIANT, REFUSES REPOSTIONIONG, THE PT DID AGREE AND WAS COOPERATIVE WITH A BED BATH TODAY AFTER BREAKFAST, THE PT S O2 WAS TITRATED TO 1.5L/MIN VIA NC PT SEEMS TO BE TOLERATING WELL, PT DENIED PAIN, WOUND VAC TO RIGHT FOOT APPEARS INTACT, PT HAD A VISITOR THIS AFTERNOON, CALL LIGHT IN REACH, REPORT GIVEN TO NIGHT NURSE
[2020-06-19 05:11] LABS: Albumin, Blood 1.9 g/dL (3.4-5.0); Anion Gap 9 mmol/L (6-16); Blood Urea Nitrogen 62 mg/dL (8-24); Bun/Creatinine Ratio 24.1 (12.0-20.0); CO2, Blood 25 mmol/L (21-32); Calcium, Blood 8.1 mg/dL (8.5-10.1); Chloride, Blood 107 mmol/L (98-108); Creatinine, Blood 2.57 mg/dL (0.60-1.20); Glomerular Filtration Rate 26 (60-); Glucose, Blood 221 mg/dL (70-99); Magnesium, Blood 1.8 mg/dL (1.6-2.4); Phosphorus, Blood 3.1 mg/dL (2.5-4.9); Potassium, Blood 4.4 mmol/L (3.5-5.5); Sodium, Blood 141 mmol/L (136-145)
[2020-06-19 05:28] LABS: Hematocrit 28.3 % (37.0-53.0); Hemoglobin 8.9 g/dL (13.5-17.5); Mean Corpuscular HGB 26.5 pg (26.0-34.0); Mean Corpuscular HGB Conc 31.4 g/dL (31.5-36.5); Mean Corpuscular Volume 84 fL (80-100); Mean Platelet Volume 9.7 fL (9.1-12.4); Platelet Count 172 K/mm3 (150-400); RDW Coefficient Variation 15.6 % (11.7-14.2); RDW Standard Deviation 47.7 fL (35.1-46.3); Red Blood Cell Count 3.36 M/mm3 (4.30-5.90); White Blood Cell Count 15.81 K/mm3 (4.00-11.30)
--- NOTE | 2020-06-19 06:31 | NUR ---
SHIFT SUMMARY: PATIENT IS A&OX3, IRRITABLE AND DOES NOT LIKE STAFF PICKING UP GARBAGE ON TRAY AND BED. REFUSED T&P AND LINEN CHANGE AFTER SODA WAS SPILLED ON TRAY AND SOILED SIDE OF SHEET. REFUSED OMEPRAZOLE THIS AM AND COLACE AT HS. ALSO REFUSED FULL SKIN ASSESSMENT. VSS AND WOUND VAC IS IN PLACE WITH NO OUT PUT.
[2020-06-19 13:10] LABS: Influenza A, PCR Negative (NEGATIVE); Influenza B, PCR Negative (NEGATIVE); Resp Syncytial Virus, PCR Negative (NEGATIVE); SARS-Cov-2 (COVID-19) PCR, MMC Negative (NEGATIVE)
--- NOTE | 2020-06-19 17:25 | NUR ---
SHIFT SUMMARY PT AWAKE AT START OF SHIFT. RESTING QUIETLY, BUT VERY IRRITABLE. PER SHIFT REPORT, PT NONCOMPLIANT WITH CARE AND REFUSING NEEDED CARE. PT ALSO PICKS AND CHOOSES WHAT CARE HE WILL HAVE DONE. PT TO DIALYSIS THIS AM AND THEN TO D/C TO . PERMA CATH TO RCW. PT TO CONTINUE IV ABX AT . MALENA P/G PLACED BY NIKKIE RN. ALL DRSGS REMOVED FROM L HEEL; PICTURES TAKEN FOR CHART AND DRSG'S LEFT OFF FOR TO ASSESS. OUR WOUND VAC REMOVED FROM R DORSAL FOOT AND TO REMAIN HERE; PICTURES TAKEN FOR CHART. [facility]. PROTECTIVE MEPILEX REMOVED FROM BUTTOCKS FOR CHART PICTURES. DRSG LEFT OFF FOR TO ASSESS. REPORT CALLED TO ; SPOKE WITH DONALD PARRISH. PT ABLE TO TX TO W/C FOR D/C. PT'S BELONGINGS AND HOME W/C TAKEN WITH HIM.
== END 2020-06-19 16:31 | DRG 64 ==
LOC: ER 15:36 → PCU 18:45 → MEDS 06-13 17:56 → ENPENDDIS 06-19 10:18 → MEDS 06-19 16:31
PROVIDERS: Emergency Medicine; Family Medicine; Internal Medicine; Internal Medicine Interventional Cardiology; Internal Medicine Nephrology; Nurse Practitioner Acute Care; ADMIT Internal Medicine
PROC: 5A1D70Z Performance of Urinary Filtration, Intermittent, Less than 6 Hours Per Day (ICD-10-PCS; principal; 2020-06-10)
PROC: 5A1D70Z Performance of Urinary Filtration, Intermittent, Less than 6 Hours Per Day (ICD-10-PCS; 2020-06-11)
PROC: 5A1D70Z Performance of Urinary Filtration, Intermittent, Less than 6 Hours Per Day (ICD-10-PCS; 2020-06-13)
PROC: 5A1D70Z Performance of Urinary Filtration, Intermittent, Less than 6 Hours Per Day (ICD-10-PCS; 2020-06-15)
PROC: 5A1D70Z Performance of Urinary Filtration, Intermittent, Less than 6 Hours Per Day (ICD-10-PCS; 2020-06-17)
PROC: 5A1D70Z Performance of Urinary Filtration, Intermittent, Less than 6 Hours Per Day (ICD-10-PCS; 2020-06-19)
DX: I63.231 Cerebral infarction due to unspecified occlusion or stenosis of right carotid arteries (principal); I21.3 ST elevation (STEMI) myocardial infarction of unspecified site; I33.0 Acute and subacute infective endocarditis; N18.6 End stage renal disease; I12.0 Hypertensive chronic kidney disease with stage 5 chronic kidney disease or end stage renal disease; B37.49 Other urogenital candidiasis; E11.22 Type 2 diabetes mellitus with diabetic chronic kidney disease; E11.51 Type 2 diabetes mellitus with diabetic peripheral angiopathy without gangrene; I08.0 Rheumatic disorders of both mitral and aortic valves; Z89.421 Acquired absence of other right toe(s); Z87.891 Personal history of nicotine dependence; Z79.4 Long term (current) use of insulin; I48.0 Paroxysmal atrial fibrillation; Z99.2 Dependence on renal dialysis; E11.649 Type 2 diabetes mellitus with hypoglycemia without coma; E04.1 Nontoxic single thyroid nodule; E87.70 Fluid overload, unspecified; E88.09 Other disorders of plasma-protein metabolism, not elsewhere classified; Z59.0 Homelessness; Z20.822 Contact with and (suspected) exposure to COVID-19
CPT/HCPCS: 0241U; 36415; 36430; 51701; 70450; 70496; 70498; 71045; 80053; 80061; 80069; 81001; 82248; 82550; 82553; 82947; 83735; 83880; 84100; 84484; 85014; 85018; 85025; 85027; 85610; 85651; 85730; 86140; 86850; 86900; 86901; 86923; 87086; 92526; 92610; 93005; 93010; 93308; 94762; 97110; 97162; 97165; 97530; 97535; 99285-25; A9270; C1751; G0103; J0696; J1450; J1644; J1956; J7042; J7050; P9016; Q9967

== ENCOUNTER 2020-06-26 09:59 | Inpatient (IN) | payer OTHER, MEDICARE ==
[~2020-06-26] VITALS: Ht 165.1 cm; Wt 56.7 kg
[~2020-06-26 09:59] MED LIST: AMLO10 PO; ASPI325EC PO; CLON.3 PO; GLUCOSE4 GM PO; HYDRA50 PO; INSULANPEN SC; JARDIANCE25 MG PO; LATA.005SO BOTHEYES; PANT40 PO; RENAL VITAMIN0.8 MG PO; ZESTRIL40 M1 PO
[2020-06-26 10:43] LABS: BASOPHILS PERCENT AUTO 0 % (0-2); EOSINOPHILS PERCENT AUTO 0 % (0-6); Hematocrit 26.3 % (37.0-53.0); Hemoglobin 8.1 g/dL (13.5-17.5); IMMATURE GRAN ABSOLUTE AUTO 0.03 K/mm3 (0.00-0.10); IMMATURE GRAN PERCENT AUTO 0 % (0-1); LYMPHOCYTES ABSOLUTE AUTO 0.82 K/mm3 (0.84-5.20); LYMPHOCYTES PERCENT AUTO 10 % (21-46); MONOCYTES ABSOLUTE AUTO 0.54 K/mm3 (0.16-1.47); MONOCYTES PERCENT AUTO 7 % (4-13); Mean Corpuscular HGB 25.8 pg (26.0-34.0); Mean Corpuscular HGB Conc 30.8 g/dL (31.5-36.5); Mean Corpuscular Volume 84 fL (80-100); Mean Platelet Volume 9.7 fL (9.1-12.4); NEUTROPHILS ABSOLUTE AUTO 6.57 K/mm3 (1.96-9.15); NEUTROPHILS PERCENT AUTO 83 % (41-73); Platelet Count 190 K/mm3 (150-400); RDW Coefficient Variation 16.5 % (11.7-14.2); RDW Standard Deviation 50.2 fL (35.1-46.3); Red Blood Cell Count 3.14 M/mm3 (4.30-5.90); White Blood Cell Count 7.96 K/mm3 (4.00-11.30)
[2020-06-26 11:04] LABS: Albumin, Blood 2.2 g/dL (3.4-5.0); Albumin/Globulin Ratio 0.6 (0.8-1.8); Bilirubin, Total 0.6 mg/dL (0.1-1.0); Bun/Creatinine Ratio 16.2 (12.0-20.0); Calcium, Blood 8.8 mg/dL (8.5-10.1); Creatinine, Blood 2.6 mg/dL (0.60-1.20); Globulin, Blood 3.7 g/dL (2.2-4.0); Potassium, Blood 4.8 mmol/L (3.5-5.5); Total Protein, Blood 5.9 g/dL (6.4-8.2)
[2020-06-26 11:19] LABS: Troponin I 0.92 ng/mL (0.000-0.040)
[2020-06-26 14:20] LABS: Influenza A, PCR NEGATIVE (NEGATIVE); Influenza B, PCR NEGATIVE (NEGATIVE); Resp Syncytial Virus, PCR NEGATIVE (NEGATIVE)
[2020-06-26 14:21] LABS: SARS-Cov-2 (COVID-19) PCR, MMC POSITIVE (NEGATIVE)
--- NOTE | 2020-06-26 16:30 | NUR ---
RECEIVED PT FROM ER EMERENTLY FROM ER. S/P CARDIOPULMONARY RESUSCITATION WITH SEVERAL ROUNDS OF EPI AND CPR FOR APROX 15 MINUTES.PT IS INTUBATED-SOME DECORTICATE POSTURING NOTED. NO PURPOSEFUL MOVEMENT. PUPILS 4 MM NONREPSONSIVE TO LIGHT. LARGE BRUISE AND ABRASION NOTED TO LEFT TEMPORAL REGION AND LEFT HIP FROM FALL EARLIER (WITH SYNCOPAL EPISODE EARLIER TODAY.) ETT TO VENT-PT AGONAL BREATHING. RESP IRREGULAR AND NOCOMPLIANT WITH VENT. PROPOFOL STARTED AT 20 MCG/KG/MIN.AC 16, TV 350, PEEP 5, 100%- SPO2 READING DIFFICULT TO GET. PT IS PALE AND EXTREMITIES ARE COLD AND LOWER EXTREMITIES APPEAR MOTTLED. ECG SHOWS AFIB WITH RATE 90-100'S. SBP 70'S.[address] FISCHER REVIEWED ECG WITH [facility] FAIR. MICHELLE ROA CONTACTING PT FAMILY REGARDING CODE STATUS AND FURTHER RESUSCITATION. IV ACCESS WITH OLD EXTEMDED DWELL CATHETHER #18 TO RIGHT AC-DRESSING APPEARS OLD AND DIRTY. #20 TO RIGHT HAND- SITE CLEAR. THERE WAS DISCUSSION REGARDING A CENTRAL LINE AND LEVOPHED. HOWEVER, ULTIMATELY THE FAMILY DECIDED TO WITHDRAW LIFE SUPPORT. PT MED WITH MORPHINE SULFATE 5 MG IV @ 1655 AND PROPOFOL DISCONTINUED @ 1653. PT EXTUBATED @ 1657 AND @ 1703. CES[facility] FAIR NOTIFIED.
--- NOTE | 2020-06-26 17:53 | NUR ---
T/C to [id number], Maribell, to inform of pt's . She lives in [place] and would like his body sent to a home up there. I advised her to select one and call us back.
== END 2020-06-26 17:03 ==
LOC: ER 09:59 → ICUW 13:00
PROVIDERS: Emergency Medicine; Nurse Practitioner Acute Care; ADMIT Internal Medicine
PROC: 0BH17EZ Insertion of Endotracheal Airway into Trachea, Via Natural or Artificial Opening (ICD-10-PCS; principal; 2020-06-26)
PROC: 5A1935Z Respiratory Ventilation, Less than 24 Consecutive Hours (ICD-10-PCS; 2020-06-26)
PROC: 5A12012 Performance of Cardiac Output, Single, Manual (ICD-10-PCS; 2020-06-26)
DX: I21.4 Non-ST elevation (NSTEMI) myocardial infarction (principal); U07.1 COVID-19; N18.6 End stage renal disease; I12.0 Hypertensive chronic kidney disease with stage 5 chronic kidney disease or end stage renal disease; N25.81 Secondary hyperparathyroidism of renal origin; I46.2 Cardiac arrest due to underlying cardiac condition; E87.70 Fluid overload, unspecified; I95.9 Hypotension, unspecified; E11.22 Type 2 diabetes mellitus with diabetic chronic kidney disease; I08.0 Rheumatic disorders of both mitral and aortic valves; Z51.5 Encounter for palliative care; E11.51 Type 2 diabetes mellitus with diabetic peripheral angiopathy without gangrene; E78.5 Hyperlipidemia, unspecified; D64.9 Anemia, unspecified; I48.0 Paroxysmal atrial fibrillation; E88.09 Other disorders of plasma-protein metabolism, not elsewhere classified; N40.0 Benign prostatic hyperplasia without lower urinary tract symptoms; I25.10 Atherosclerotic heart disease of native coronary artery without angina pectoris; H91.90 Unspecified hearing loss, unspecified ear; Z99.2 Dependence on renal dialysis; Z59.0 Homelessness; Z91.19 Patient's noncompliance with other medical treatment and regimen; Z86.73 Personal history of transient ischemic attack (TIA), and cerebral infarction without residual deficits; Z87.891 Personal history of nicotine dependence; Z89.421 Acquired absence of other right toe(s); Z88.0 Allergy status to penicillin; Z88.8 Allergy status to other drugs, medicaments and biological substances; Z79.82 Long term (current) use of aspirin; Z79.4 Long term (current) use of insulin; Z79.899 Other long term (current) drug therapy; Z86.79 Personal history of other diseases of the circulatory system
CPT/HCPCS: 0241U; 31500; 31720; 36415; 51702; 70450; 71045; 80053; 82947; 83735; 84100; 84484; 85025; 93005; 93010; 94002; 96361-59; 96374-59; 96375-59; 99285-25; A9270; J1644; J2270; J2704; J7030